=== PATIENT | male | born 1945 | race Caucasian/White ===

== ENCOUNTER → 2016-12-10 | Outpatient (CLI) | payer OTHER ==
[2016-02-27 13:19] VITALS: BP 114/57
--- NOTE | 2016-12-11 08:31 | RAD ---
History: Left hip pain Study: Left hip two views Findings: AP and frogleg views of the left hip including the pelvis on the AP view show no fracture o r displacement. Relative maintenance of the cartilage spaces at the left hip is seen. The SI joints appear intact. Impression: 1. No acute findings of the left hip or pelvis as visualized. Reported By:
== END ==
LOC: RAD 09:52
PROVIDERS: ATTEND Specialist
DX: M25.552 Pain in left hip (principal)
CPT/HCPCS: 73501

== ENCOUNTER 2023-07-19 07:36 | Inpatient (IN) ==
[2023-07-19 09:03] LABS: BASOPHILS % (AUTO) 0.3 % (0.2-1.0); EOSINOPHILS % (AUTO) 0.1 % (0.9-2.9); HEMATOCRIT 32.1 % (42.0-54.0); HEMOGLOBIN 10.3 g/dL (13.5-18.0); LYMPHOCYTES # (AUTO) 0.5 X10^3/uL (1.3-2.9); LYMPHOCYTES % (AUTO) 8.1 % (21.0-51.0); MEAN CORPUSCULAR HEMOGLOBIN 31.2 pg (27.0-34.0); MEAN CORPUSCULAR VOLUME 97.6 fL (80.0-100.0); MEAN PLATELET VOLUME 10.4 fL (7.4-11.0); MONOCYTES # (AUTO) 0.5 x10^3/uL (0.3-0.8); MONOCYTES % (AUTO) 7.9 % (0.0-13.0); NEUTROPHILS # (AUTO) 5.4 x10^3/uL (2.2-4.8); NEUTROPHILS % (AUTO) 83.6 % (42.0-75.0); PLATELET COUNT 180 X10^3/uL (150.0-450.0); RED BLOOD COUNT 3.29 X10^6/uL (4.7-6.0); RED CELL DISTRIBUTION WIDTH 15.1 % (11.6-16.5); WHITE BLOOD COUNT 6.4 X10^3/uL (3.6-10.0)
--- NOTE | 2023-07-19 09:12 | CT ---
EXAM:BRAIN W/O CONHISTORY:Altered mental statusTECHNIQUE:Axial noncontrast images with coronal and sagittal reformats. Dose reduction procedures were used with mA/kv adjusted for body size.COMPARISON:NoneFINDINGS:The ventricles, cortical sulci, and other CSF spaces are enlarged consistent with generalized atrophy likely age-related. There are no focal areas of abnormal attenuation to suggest recent or remote CVA, hemorrhage, mass lesion, or extra-axial fluid collection. Visualized sinuses are clear with the exception of mucosal inflammatory changes present within the right frontal sinus. Calvarium is intact.IMPRESSION:No acute intracranial abnormality identifiedGeneralized atrophy likely age-relatedRight frontal sinusitisTHIS IS AN ELECTRONICALLY VERIFIED FINAL REPORT07/19/2023 9:04 AM - Electronically signed by Jeremy Hansen MD
[2023-07-19 09:16] LABS: ALANINE AMINOTRANSFERASE 17 Units/L (12-78); ALBUMIN 1.5 g/dL (3.4-5.0); ALKALINE PHOSPHATASE 89 Units/L (46-116); ASPARTATE AMINO TRANSFERASE 31 Units/L (15-37); BLOOD UREA NITROGEN 34 mg/dL (7-18); CALCIUM 9.2 mg/dL (8.5-10.1); CARBON DIOXIDE 25.2 mmol/L (21-32); CHLORIDE 100 mmol/L (98-107); COR CA(FOR HYPOALB) 11.2 mg/dL (8.5-10.1); CREATINE KINASE 382 Units/L (39-308); POTASSIUM 4.1 mmol/L (3.5-5.1); SODIUM 138 mmol/L (136-145); TOTAL PROTEIN 7.5 g/dL (6.4-8.2); eGFR NON BLACK RACES 45 (>60)
[2023-07-19 09:19] LABS: COR NA(FOR HYPERGLY) 153 mmol/L (136-145); GLUCOSE 719 mg/dL (65-99)
[2023-07-19 09:26] LABS: SERUM ACETONE NEGATIVE (NEGATIVE)
[2023-07-19 09:32] LABS: BILIRUBIN,URINE NEGATIVE (NEGATIVE); BLOOD/HEMOGLOBIN,URINE 4+ (NEGATIVE); GLUCOSE, URINE 4+ (NEGATIVE); KETONES,URINE 2+ (NEGATIVE); LEUKOCYTE ESTERASE ,URINE NEGATIVE (NEGATIVE); NITRITES,URINE NEGATIVE (NEGATIVE); PROTEIN,URINE 1+ (NEGATIVE); UROBILINOGEN,URINE NORMAL (NORMAL)
--- NOTE | 2023-07-19 09:41 | RAD ---
EXAM:CHEST, 1 VIEWHISTORY:SOB;COMPARISON:Prior study or studies were utilized for comparison during interpretation with the most relevant dated 12/19/2020TECHNIQUE:CHEST, 1 VIEWFINDINGS:Chest:Lines and tubes: Cardiac leads overlie the chest.Mediastinum: Cardiomegaly.Pulmonary vessels: Low lung volumes contributes to increased conspicuity of pulmonary vascular markings.Lung russ: Patchy opacities are seenPleura: No effusion. No pneumothorax.Bones and soft tissues: No acute osseous or soft tissue abnormality.IMPRESSION:1. Patchy bilateral airspace opacities may indicate pneumonia in the proper clinical settingTHIS IS AN ELECTRONICALLY VERIFIED FINAL REPORT07/19/2023 9:38 AM - Electronically signed by Sterling Valdes MD
[2023-07-19 09:53] LABS: APPEARANCE,URINE SLIGHTLY HAZY (CLEAR); COLOR,URINE STRAW (YELLOW); SQUAMOUS EPITHELIAL CELL,UR RARE /HPF (NEGATIVE)
[2023-07-19 09:54] LABS: BACTERIA,URINE TRACE /HPF (NEGATIVE)
[2023-07-19] MEDS ORDERED: NS 1,000 ML IV 1,000 ML ONE (10:04)
[2023-07-19] MEDS ORDERED: ZITHROMAX INJ 500 MG VIAL IV ONE (10:04)
[2023-07-19] MEDS ORDERED: NS 250 ML IV 250 ML IV ONE (10:04)
[2023-07-19] MEDS: NS 1,000 ML IV 1,000 ML IV ONE (10:05)
[2023-07-19] MEDS: ZITHROMAX INJ 500 MG VIAL 500 MG in NS 250 ML IV 250 ML IV ONE (10:06)
--- NOTE | 2023-07-19 10:31 | DR.HYPOGLY ---
HPI Time Seen Time Seen by Provider: 07/19/23 10:28 PCP Primary Care Physician: Unknown Complaint Chief Complaint:: EMS was called by family due to altered mental status and high blood sugar. On arrival, he is unable to answer any questions. His glucose on arrival read as "High". He is only moaning and not answering any basic questions. COVID-19 Coronavirus risk:travel/contact w/high risk person: No Has patient experienced Coronavirus symptoms: No Source History Provided: Patient Mode of Arrival Mode of Arrival: Stretcher Timing Onset of Chief Complaint: 07/19/23 PMH PMH Past Medical History: Yes Past Medical History: Arthritis, Diabetes, Dyslipidemia, GERD and Hypertension Past Surgical History: Yes Surgical History: Other Family History History of Family Medical Conditions: Yes Family Medical History: Coronary Artery Disease and Hypertension Social History Do you use any recreational Drugs:: No Lives With: Family Lives Where: Home Travel Risk Coronavirus risk:travel/contact w/high risk person: No Has patient experienced Coronavirus symptoms: No Infectious screening In the last 2 months have you had wt loss of >10#?: NO Have you had fever, night sweats or hemotysis?: No Have you traveled outside the country in the last 6 months?: No Isolation: Standard PE Vital Signs Vitals: Vital Signs Temperature 96 F Pulse Rate 95 Pulse Rate 91 Pulse Rate 129 Pulse Rate 102 Pulse Rate 110 Pulse Rate 110 Pulse Rate 97 Pulse Rate 91 Pulse Rate 104 Pulse Rate 90 Pulse Rate 91 Pulse Rate 89 Pulse Rate 93 Pulse Rate 83 Pulse Rate 93 Pulse Rate 81 Pulse Rate 90 Pulse Rate 91 Pulse Rate 94 Pulse Rate 75 Pulse Rate 92 Respiratory Rate 25 Respiratory Rate 22 Respiratory Rate 34 Respiratory Rate 22 Respiratory Rate 13 Respiratory Rate 26 Respiratory Rate 34 Respiratory Rate 37 Respiratory Rate 32 Respiratory Rate 18 Respiratory Rate 17 Respiratory Rate 20 Respiratory Rate 30 Respiratory Rate 24 Respiratory Rate 17 Respiratory Rate 30 Respiratory Rate 10 Respiratory Rate 17 Respiratory Rate 21 Blood Pressure 137/77 Blood Pressure 147/90 Blood Pressure 154/80 Blood Pressure 157/82 Blood Pressure 153/67 Blood Pressure 132/60 O2 Sat by Pulse Oximetry 96 O2 Sat by Pulse Oximetry 95 O2 Sat by Pulse Oximetry 96 O2 Sat by Pulse Oximetry 85 O2 Sat by Pulse Oximetry 80 O2 Sat by Pulse Oximetry 86 O2 Sat by Pulse Oximetry 95 O2 Sat by Pulse Oximetry 96 O2 Sat by Pulse Oximetry 96 O2 Sat by Pulse Oximetry 85 O2 Sat by Pulse Oximetry 95 O2 Sat by Pulse Oximetry 94 O2 Sat by Pulse Oximetry 95 O2 Sat by Pulse Oximetry 96 ROR Labs Reviewed 07/19/23 08:40 07/19/23 08:40 Laboratory: WBC 6.4 X10^3/uL (3.6-10.0) 07/19/23 08:40 RBC 3.29 X10^6/uL (4.7-6.0) L 07/19/23 08:40 Hgb 10.3 g/dL (13.5-18.0) L 07/19/23 08:40 Hct 32.1 % (42.0-54.0) L 07/19/23 08:40 MCV 97.6 fL (80.0-100.0) 07/19/23 08:40 MCH 31.2 pg (27.0-34.0) 07/19/23 08:40 MCHC 32.0 g/dL (33.0-35.0) L 07/19/23 08:40 RDW 15.1 % (11.6-16.5) 07/19/23 08:40 Plt Count 180 X10^3/uL (150.0-450.0) 07/19/23 08:40 MPV 10.4 fL (7.4-11.0) 07/19/23 08:40 Neut % (Auto) 83.6 % (42.0-75.0) H 07/19/23 08:40 Lymph % (Auto) 8.1 % (21.0-51.0) L 07/19/23 08:40 [place] % (Auto) 7.9 % (0.0-13.0) 07/19/23 08:40 Eos % (Auto) 0.1 % (0.9-2.9) L 07/19/23 08:40 Baso % (Auto) 0.3 % (0.2-1.0) 07/19/23 08:40 Neut # (Auto) 5.4 x10^3/uL (2.2-4.8) H 07/19/23 08:40 Lymph # (Auto) 0.5 X10^3/uL (1.3-2.9) L 07/19/23 08:40 [place] # (Auto) 0.5 x10^3/uL (0.3-0.8) 07/19/23 08:40 Eos # (Auto) 0.0 x10^3/uL (0.0-0.2) 07/19/23 08:40 Baso # (Auto) 0.0 X10^3/uL (0.0-0.1) 07/19/23 08:40 Absolute Nucleated RBC 0.0 /100WBC 07/19/23 08:40 Sodium 138 mmol/L (136-145) 07/19/23 08:40 Corrected Sodium 153 mmol/L (136-145) H 07/19/23 08:40 Potassium 4.1 mmol/L (3.5-5.1) 07/19/23 08:40 Chloride 100 mmol/L (98-107) 07/19/23 08:40 Carbon Dioxide 25.2 mmol/L (21-32) 07/19/23 08:40 BUN 34 mg/dL (7-18) H 07/19/23 08:40 Creatinine 1.60 mg/dL (0.70-1.30) H 07/19/23 08:40 Est GFR (MDRD) Af Amer 54 (>60) L 07/19/23 08:40 Est GFR (MDRD) Non-Af 45 (>60) L 07/19/23 08:40 Glucose 719 mg/dL (65-99) H* 07/19/23 08:40 POC Glucose (mg/dL) 526 mg/dL (65-99) H* 07/19/23 11:50 Lactic Acid 1.3 mmol/L (0.4-2.0) 07/19/23 08:40 Calcium 9.2 mg/dL (8.5-10.1) 07/19/23 08:40 Corrected Calcium 11.2 mg/dL (8.5-10.1) H 07/19/23 08:40 Total Bilirubin 0.70 mg/dL (0.2-1.0) 07/19/23 08:40 AST 31 Units/L (15-37) 07/19/23 08:40 ALT 17 Units/L (12-78) 07/19/23 08:40 Alkaline Phosphatase 89 Units/L (46-116) 07/19/23 08:40 Creatine Kinase 382 Units/L (39-308) H 07/19/23 08:40 Troponin I High Sens 19.3 ng/L (4.0-60.0) 07/19/23 08:40 B-Natriuretic Peptide 194 pg/mL (0-79) H 07/19/23 08:40 Total Protein 7.5 g/dL (6.4-8.2) 07/19/23 08:40 Albumin 1.5 g/dL (3.4-5.0) L 07/19/23 08:40 Globulin 6.0 g/dL (2.5-4.5) H 07/19/23 08:40 Albumin/Globulin Ratio 0.3 Ratio (1.1-2.1) L 07/19/23 08:40 Specimen Type Catherized urine 07/19/23 09:11 Urine Color Straw (YELLOW) 07/19/23 09:11 Urine Appearance Slightly hazy (CLEAR) 07/19/23 09:11 Urine pH 5.0 (5.0 - 8.0) 07/19/23 09:11 Ur Specific [place] 1.010 (1.000-1.030) 07/19/23 09:11 Urine Protein 1+ (NEGATIVE) 07/19/23 09:11 Urine Glucose (UA) 4+ (NEGATIVE) 07/19/23 09:11 Urine Ketones 2+ (NEGATIVE) 07/19/23 09:11 Urine Blood 4+ (NEGATIVE) 07/19/23 09:11 Urine Nitrite Negative (NEGATIVE) 07/19/23 09:11 Urine Bilirubin Negative (NEGATIVE) 07/19/23 09:11 Urine Urobilinogen Normal (NORMAL) 07/19/23 09:11 Ur Leukocyte Esterase Negative (NEGATIVE) 07/19/23 09:11 Urine RBC 3-5 /HPF (0-3) A 07/19/23 09:11 Urine WBC 0-2 /HPF (0-5) 07/19/23 09:11 Ur Squamous Epith Cells Rare /HPF (NEGATIVE) 07/19/23 09:11 Amorphous Sediment Trace /HPF (NEGATIVE) 07/19/23 09:11 Urine Bacteria Trace /HPF (NEGATIVE) 07/19/23 09:11 Ur Culture Indicated? No/not indicated 07/19/23 09:11 Acetone, Semi-Quant Negative (NEGATIVE) 07/19/23 08:40 Opioid Opioid Risk Tool Age (Jayden box if 16-45): No History of Preadolescent Sexual Abuse: No Total: 0 Total Score Risk Category: Low Risk Copyright: Luis SCOTT predicting aberrant behaviors Discharge Plan Diagnosis Discharge Problem: Pneumonia, Hyperglycemia Discharge Plan Patient Disposition: 09 ADMITTED INPATIENT Condition: Stable Orders to Discharge Patient Discharge Orders: Transfer (Routine); Ordered 07/19/23 Ordered By: MONICA DALTON
[2023-07-19] MEDS ORDERED: NovoLIN R (or HumuLIN R) ONE (10:47)
[2023-07-19] MEDS: NovoLIN R (or HumuLIN R) IV ONE ×2 (10:48→11:59)
[2023-07-19] MEDS: NS 1,000 ML IV 1,000 ML IV SCH (12:24)
[2023-07-19] MEDS: NYSTATIN POWDER TOP SCH (14:22)
[2023-07-19] MEDS: NovoLIN R (or HumuLIN R) IV PRN (14:35)
[2023-07-19 17:08] VITALS: BMI 32.4
[2023-07-19] MEDS: DUONEB 0.5 MG/3 MG (3 mL) NEB SCH (17:22)
[2023-07-19] MEDS: SNACK - Diabetic Appropriate PO SCH ×2 (20:05→20:50)
[2023-07-19] MEDS: PULMICORT NEB TX 0.5 MG NEB SCH (20:30)
[2023-07-20 05:09] LABS: BASOPHILS % (AUTO) 0.1 % (0.2-1.0); EOSINOPHILS % (AUTO) 0.2 % (0.9-2.9); HEMATOCRIT 30.3 % (42.0-54.0); HEMOGLOBIN 9.9 g/dL (13.5-18.0); LYMPHOCYTES # (AUTO) 0.6 X10^3/uL (1.3-2.9); LYMPHOCYTES % (AUTO) 8.9 % (21.0-51.0); MEAN CORPUSCULAR HEMOGLOBIN 30.8 pg (27.0-34.0); MEAN CORPUSCULAR HGB CONC 32.7 g/dL (33.0-35.0); MEAN CORPUSCULAR VOLUME 94.1 fL (80.0-100.0); MEAN PLATELET VOLUME 10.6 fL (7.4-11.0); MONOCYTES # (AUTO) 0.6 x10^3/uL (0.3-0.8); MONOCYTES % (AUTO) 9.1 % (0.0-13.0); NEUTROPHILS # (AUTO) 5.1 x10^3/uL (2.2-4.8); NEUTROPHILS % (AUTO) 81.7 % (42.0-75.0); PLATELET COUNT 195 X10^3/uL (150.0-450.0); RED BLOOD COUNT 3.22 X10^6/uL (4.7-6.0); RED CELL DISTRIBUTION WIDTH 14.6 % (11.6-16.5); WHITE BLOOD COUNT 6.2 X10^3/uL (3.6-10.0)
[2023-07-20 05:21] LABS: ALANINE AMINOTRANSFERASE 16 Units/L (12-78); ALBUMIN 1.3 g/dL (3.4-5.0); ALKALINE PHOSPHATASE 75 Units/L (46-116); ASPARTATE AMINO TRANSFERASE 21 Units/L (15-37); BLOOD UREA NITROGEN 25 mg/dL (7-18); CALCIUM 8.7 mg/dL (8.5-10.1); CARBON DIOXIDE 30.6 mmol/L (21-32); CHLORIDE 110 mmol/L (98-107); COR CA(FOR HYPOALB) 10.9 mg/dL (8.5-10.1); COR NA(FOR HYPERGLY) 154 mmol/L (136-145); CREATININE 1.14 mg/dL (0.70-1.30); GLUCOSE 303 mg/dL (65-99); MAGNESIUM 1.9 mg/dL (2.0-2.9); POTASSIUM 3.7 mmol/L (3.5-5.1); SODIUM 149 mmol/L (136-145); TOTAL PROTEIN 6.7 g/dL (6.4-8.2); eGFR NON BLACK RACES > 60 (>60)
[2023-07-20] MEDS ORDERED: CONSULT PHARMACY - POTASSIUM & MAGNESIUM XX SCH (06:00)
[2023-07-20] MEDS: MAG-OX TAB PO SCH (09:00)
[2023-07-20] MEDS: ELIQUIS PO SCH (09:00)
[2023-07-20] MEDS: K-DUR TAB 20 MEQ PO SCH (09:00)
[2023-07-20] MEDS: FLOMAX PO SCH (09:01)
[2023-07-20] MEDS: DIOVAN TAB 160 MG PO SCH (09:03)
[2023-07-20] MEDS: ZITHROMAX INJ 500 MG VIAL 500 MG in NS 250 ML IV 250 ML IV SCH (09:03)
[2023-07-20 09:06] LABS: FREE T4 (FREE THYROXINE) 1.17 ng/dL (0.76-1.46); TSH (3RD GENERATION) 0.741 uIU/mL (0.358-3.74)
[2023-07-20 09:09] LABS: TOTAL PSA 1.01 ng/mL (0.13-4.0)
[2023-07-20] MEDS: SILVADENE TOP SCH (09:27)
--- NOTE | 2023-07-20 12:08 | RAD ---
EXAM:CHEST, 1 VIEWHISTORY:PNEUMONIA; DM, HTN, TOE REMOVEDCOMPARISON:Prior study or studies were utilized for comparison during interpretation with the most relevant dated 07/19/2023TECHNIQUE:CHEST, 1 VIEWFINDINGS:Chest:Lines and tubes: Cardiac leads overlie the chest.Mediastinum: Cardiomegaly.Pulmonary vessels: Low lung volumes contributes to increased conspicuity of pulmonary vascular markings.Lung russ: No suspicious airspace opacity.Pleura: No effusion. No pneumothorax.Bones and soft tissues: No acute osseous or soft tissue abnormality.IMPRESSION:1. No acute cardiopulmonary abnormalityTHIS IS AN ELECTRONICALLY VERIFIED FINAL REPORT07/20/2023 12:04 PM - Electronically signed by Sterling Valdes MD
--- NOTE | 2023-07-20 12:59 | EKG ---
Test Reason : ELEVATED HEART RATE Blood Pressure : */* mmHG Vent. Rate : 94 BPM Atrial Rate : 94 BPM P-R Int : 150 ms QRS Dur : 98 ms QT Int : 344 ms P-R-T Axes : * 192 172 degrees QTc Int : 430 ms Normal sinus rhythm Right superior axis deviation Abnormal ECG No previous ECGs available Confirmed by Lucius Argueta MD ([id number]) on 07/20/2023 3:02:35 PM Referred By: Confirmed By: Lucius Argueta MD
[2023-07-20] MEDS: LOPRESSOR TAB 25 MG PO SCH (14:02)
--- NOTE | 2023-07-20 18:03 | DR.H&P ---
H&P History & Physical for Day of: H&P Date: 07/19/23 Chief Complaint Chief Complaint: AMS Allergies Allergies Allergy/AdvReac Type Severity Reaction Status Date / Time ciprofloxacin [Cipro] Allergy Unknown Verified 07/19/23 07:43 codeine Allergy Unknown Verified 07/19/23 07:43 morphine Allergy Unknown Verified 07/19/23 07:43 Penicillins Allergy Unknown Verified 07/19/23 07:43 Sulfa (Sulfonamide Allergy Unknown Verified 07/19/23 07:43 Antibiotics) [SULFA] ALL NARCOTICS AdvReac Uncoded 07/19/23 07:43 History of Present Illness History of Present Illness: EMS was called by family due to altered mental status and high blood sugar. Pt has recently had a fall with reports of bruising on his lower back. Pt has PMH of diabetes, HTN, AFIB, OA, PVD, gerd and neuropathy. Pt had pneumonia on CXR on ER. Pt admitted to ICU for treatment and evaluation of acute illness. Past Medical History Past Medical History: Arthritis, Diabetes, Dyslipidemia, GERD and Hypertension Additional Medical History: VENOUS INSUFFICIENCY, PAD Past Surgical History Surgical History: Ortho Surgery Additional Surgical History: TOE AMPUTATION- RIGHT GREAT TOE Family History Family Medical History: Coronary Artery Disease and Hypertension Social History Does patient currently use any type of tobacco product: No Does any household member use tobacco: No Alcohol Use: None Drug Use: None Medications Home Medications: Home Medications Medication Instructions Recorded Confirmed Type valsartan 320 mg tablet 320 mg PO DAILY 02/24/16 07/19/23 History apixaban 5 mg tablet (Eliquis) 5 mg PO BID 12/19/20 07/19/23 History insulin degludec 100 unit/mL (3 50 unit subcut DAILY 12/19/20 07/19/23 History mL) subcutaneous pen (Tresiba FlexTouch U-100 insulin) tamsulosin 0.4 mg capsule 0.4 mg PO DAILY 12/19/20 07/19/23 History Labs 07/20/23 04:53 07/20/23 04:53 Labs: 07/19/23 08:40 Blood Blood Culture Gram Stain - Final 07/19/23 08:40 Blood Blood Culture - Preliminary 07/19/23 08:50 Blood Blood Culture Gram Stain - Final Laboratory WBC 6.2 X10^3/uL (3.6-10.0) 07/20/23 04:53 RBC 3.22 X10^6/uL (4.7-6.0) L 07/20/23 04:53 Hgb 9.9 g/dL (13.5-18.0) L 07/20/23 04:53 Hct 30.3 % (42.0-54.0) L 07/20/23 04:53 MCV 94.1 fL (80.0-100.0) 07/20/23 04:53 MCH 30.8 pg (27.0-34.0) 07/20/23 04:53 MCHC 32.7 g/dL (33.0-35.0) L 07/20/23 04:53 RDW 14.6 % (11.6-16.5) 07/20/23 04:53 Plt Count 195 X10^3/uL (150.0-450.0) 07/20/23 04:53 MPV 10.6 fL (7.4-11.0) 07/20/23 04:53 Neut % (Auto) 81.7 % (42.0-75.0) H 07/20/23 04:53 Lymph % (Auto) 8.9 % (21.0-51.0) L 07/20/23 04:53 [place] % (Auto) 9.1 % (0.0-13.0) 07/20/23 04:53 Eos % (Auto) 0.2 % (0.9-2.9) L 07/20/23 04:53 Baso % (Auto) 0.1 % (0.2-1.0) L 07/20/23 04:53 Neut # (Auto) 5.1 x10^3/uL (2.2-4.8) H 07/20/23 04:53 Lymph # (Auto) 0.6 X10^3/uL (1.3-2.9) L 07/20/23 04:53 [place] # (Auto) 0.6 x10^3/uL (0.3-0.8) 07/20/23 04:53 Eos # (Auto) 0.0 x10^3/uL (0.0-0.2) 07/20/23 04:53 Baso # (Auto) 0.0 X10^3/uL (0.0-0.1) 07/20/23 04:53 Absolute Nucleated RBC 0.1 /100WBC 07/20/23 04:53 Sodium 149 mmol/L (136-145) H 07/20/23 04:53 Corrected Sodium 154 mmol/L (136-145) H 07/20/23 04:53 Potassium 3.7 mmol/L (3.5-5.1) 07/20/23 04:53 Chloride 110 mmol/L (98-107) H 07/20/23 04:53 Carbon Dioxide 30.6 mmol/L (21-32) 07/20/23 04:53 BUN 25 mg/dL (7-18) H 07/20/23 04:53 Creatinine 1.14 mg/dL (0.70-1.30) 07/20/23 04:53 Est GFR (MDRD) Af Amer > 60 (>60) 07/20/23 04:53 Est GFR (MDRD) Non-Af > 60 (>60) 07/20/23 04:53 Glucose 303 mg/dL (65-99) H 07/20/23 04:53 POC Glucose (mg/dL) 335 mg/dL (65-99) H 07/20/23 16:11 Hemoglobin A1c 12.2 % 07/20/23 04:53 Lactic Acid 1.3 mmol/L (0.4-2.0) 07/20/23 09:40 Calcium 8.7 mg/dL (8.5-10.1) 07/20/23 04:53 Corrected Calcium 10.9 mg/dL (8.5-10.1) H 07/20/23 04:53 Magnesium 1.9 mg/dL (2.0-2.9) L 07/20/23 04:53 Total Bilirubin 0.40 mg/dL (0.2-1.0) 07/20/23 04:53 AST 21 Units/L (15-37) 07/20/23 04:53 ALT 16 Units/L (12-78) 07/20/23 04:53 Alkaline Phosphatase 75 Units/L (46-116) 07/20/23 04:53 Creatine Kinase 382 Units/L (39-308) H 07/19/23 08:40 Troponin I High Sens 19.3 ng/L (4.0-60.0) 07/19/23 08:40 B-Natriuretic Peptide 194 pg/mL (0-79) H 07/19/23 08:40 Total Protein 6.7 g/dL (6.4-8.2) 07/20/23 04:53 Albumin 1.3 g/dL (3.4-5.0) L 07/20/23 04:53 Globulin 5.4 g/dL (2.5-4.5) H 07/20/23 04:53 Albumin/Globulin Ratio 0.2 Ratio (1.1-2.1) L 07/20/23 04:53 Total PSA 1.01 ng/mL (0.13-4.0) 07/20/23 04:53 Free T4 1.17 ng/dL (0.76-1.46) 07/20/23 04:53 TSH 3rd Generation 0.741 uIU/mL (0.358-3.74) 07/20/23 04:53 Specimen Type Catherized urine 07/19/23 09:11 Urine Color Straw (YELLOW) 07/19/23 09:11 Urine Appearance Slightly hazy (CLEAR) 07/19/23 09:11 Urine pH 5.0 (5.0 - 8.0) 07/19/23 09:11 Ur Specific [place] 1.010 (1.000-1.030) 07/19/23 09:11 Urine Protein 1+ (NEGATIVE) 07/19/23 09:11 Urine Glucose (UA) 4+ (NEGATIVE) 07/19/23 09:11 Urine Ketones 2+ (NEGATIVE) 07/19/23 09:11 Urine Blood 4+ (NEGATIVE) 07/19/23 09:11 Urine Nitrite Negative (NEGATIVE) 07/19/23 09:11 Urine Bilirubin Negative (NEGATIVE) 07/19/23 09:11 Urine Urobilinogen Normal (NORMAL) 07/19/23 09:11 Ur Leukocyte Esterase Negative (NEGATIVE) 07/19/23 09:11 Urine RBC 3-5 /HPF (0-3) A 07/19/23 09:11 Urine WBC 0-2 /HPF (0-5) 07/19/23 09:11 Ur Squamous Epith Cells Rare /HPF (NEGATIVE) 07/19/23 09:11 Amorphous Sediment Trace /HPF (NEGATIVE) 07/19/23 09:11 Urine Bacteria Trace /HPF (NEGATIVE) 07/19/23 09:11 Ur Culture Indicated? No/not indicated 07/19/23 09:11 Acetone, Semi-Quant Small (NEGATIVE) H 07/19/23 16:01 Resp Viral Panel (PCR) See scanned report 07/19/23 13:19 Review of Systems Constitutional: No Symptoms Reported Eyes: Vision Change ENT: Nose Discharge Respiratory: Shortness of Breath Cardiovascular: Edema Gastrointestinal: No Symptoms Reported Genitourinary: Frequency Musculoskeletal: Back Pain and Leg Pain Skin: Rash and Lesions Neurological: Weakness and Numbness Physical Exam Vital Signs: Vital Signs Temperature 97.5 F Temperature 98.0 F Pulse Rate [Right Brachial] 95 Pulse Rate [Right Brachial] 84 Pulse Rate [Right Brachial] 100 Pulse Rate [Right Brachial] 100 Pulse Rate [Right Brachial] 95 Pulse Rate [Right Brachial] 95 Pulse Rate [Right Brachial] 103 Pulse Rate [Right Brachial] 96 Respiratory Rate 9 Respiratory Rate 9 Respiratory Rate 9 Respiratory Rate 11 Respiratory Rate 18 Respiratory Rate 13 Respiratory Rate 18 Respiratory Rate 14 Blood Pressure [Left Arm] 139/62 Blood Pressure [Left Arm] 135/92 Blood Pressure [Left Arm] 125/60 Blood Pressure [Left Arm] 131/63 Blood Pressure [Left Arm] 155/66 Blood Pressure [Left Arm] 182/82 Blood Pressure [Left Arm] 158/70 Blood Pressure [Left Arm] 161/75 O2 Sat by Pulse Oximetry 93 O2 Sat by Pulse Oximetry 95 O2 Sat by Pulse Oximetry 93 O2 Sat by Pulse Oximetry 91 O2 Sat by Pulse Oximetry 94 O2 Sat by Pulse Oximetry 93 O2 Sat by Pulse Oximetry 93 O2 Sat by Pulse Oximetry 91 Oriented: Normal Eyes: Normal Ear: Normal Nose: Normal Throat: Normal and Dry Respiratory: RLL Diminished and LLL Diminished Cardiovascular: Irregular and Edema Tenderness: Normal Skin: Decreased Turgur, Red and Wound Musculoskeletal: Right, Left, Leg, Swelling and Motor Deficit Psychiatric: Anxiety Mood Description: Anxious Affect: Anxious Assessment/Plan (1) Pneumonia: Narrative Support Text: ADMIT, ICU, SUPPLEMENTAL O2, IV HYDRATION IV ATBX, BLOOD AND URINE CULTURE STRICT I&S, CARDIAC MONITORING BS CONTROL, WOUND CARE Status: Acute (2) Ulcer of ankle due to type 2 diabetes mellitus: Status: Acute (3) Type 2 diabetes mellitus treated with insulin: Status: Acute (4) GERD (gastroesophageal reflux disease): Status: Chronic (5) Hypertension: Status: Chronic (6) Cellulitis of leg without foot, left: Status: Acute (7) Open wound, lower leg: Status: Acute (8) Arthritis: Status: Chronic
[2023-07-20] MEDS: VISTARIL PO PRN (23:40)
[2023-07-21 04:43] LABS: BASOPHILS % (AUTO) 0.2 % (0.2-1.0); HEMATOCRIT 29.3 % (42.0-54.0); HEMOGLOBIN 9.7 g/dL (13.5-18.0); LYMPHOCYTES # (AUTO) 0.5 X10^3/uL (1.3-2.9); LYMPHOCYTES % (AUTO) 8.1 % (21.0-51.0); MEAN CORPUSCULAR HGB CONC 33.2 g/dL (33.0-35.0); MEAN CORPUSCULAR VOLUME 93.3 fL (80.0-100.0); MEAN PLATELET VOLUME 10.1 fL (7.4-11.0); MONOCYTES # (AUTO) 0.6 x10^3/uL (0.3-0.8); MONOCYTES % (AUTO) 10.6 % (0.0-13.0); NEUTROPHILS # (AUTO) 4.7 x10^3/uL (2.2-4.8); NEUTROPHILS % (AUTO) 81.1 % (42.0-75.0); PLATELET COUNT 173 X10^3/uL (150.0-450.0); RED BLOOD COUNT 3.14 X10^6/uL (4.7-6.0); RED CELL DISTRIBUTION WIDTH 14.7 % (11.6-16.5); WHITE BLOOD COUNT 5.8 X10^3/uL (3.6-10.0)
[2023-07-21 04:54] LABS: ALANINE AMINOTRANSFERASE 14 Units/L (12-78); ALBUMIN 1.2 g/dL (3.4-5.0); ALKALINE PHOSPHATASE 74 Units/L (46-116); ASPARTATE AMINO TRANSFERASE 21 Units/L (15-37); BLOOD UREA NITROGEN 23 mg/dL (7-18); CARBON DIOXIDE 32.2 mmol/L (21-32); CHLORIDE 108 mmol/L (98-107); COR CA(FOR HYPOALB) 10.2 mg/dL (8.5-10.1); COR NA(FOR HYPERGLY) 148 mmol/L (136-145); CREATININE 1.23 mg/dL (0.70-1.30); GLUCOSE 291 mg/dL (65-99); MAGNESIUM 1.7 mg/dL (2.0-2.9); POTASSIUM 4.1 mmol/L (3.5-5.1); SODIUM 143 mmol/L (136-145); TOTAL PROTEIN 6.7 g/dL (6.4-8.2); eGFR NON BLACK RACES > 60 (>60)
[2023-07-21] MEDS ORDERED: CONSULT PHARMACY - POTASSIUM & MAGNESIUM XX SCH (06:00)
[2023-07-21] MEDS: ROCEPHIN VIAL 1 GRAM 1 G in NS 100 ML IV 100 ML IV SCH (09:00)
[2023-07-21] MEDS: MAG-OX TAB PO SCH (09:01)
[2023-07-21 17:00] LABS: ABG ALLEN TEST POS; ABG BASE EXCESS 6.4 mmol/L (-2.0-2.0); ABG HCO3 29.2 mmol/L (22-26)
[2023-07-21] MEDS: TYLENOL 325 MG TAB PO PRN (20:29)
[2023-07-22 05:34] LABS: BASOPHILS % (AUTO) 0.4 % (0.2-1.0); HEMATOCRIT 26.8 % (42.0-54.0); HEMOGLOBIN 8.7 g/dL (13.5-18.0); LYMPHOCYTES # (AUTO) 0.4 X10^3/uL (1.3-2.9); LYMPHOCYTES % (AUTO) 7.4 % (21.0-51.0); MEAN CORPUSCULAR HEMOGLOBIN 30.8 pg (27.0-34.0); MEAN CORPUSCULAR HGB CONC 32.5 g/dL (33.0-35.0); MEAN CORPUSCULAR VOLUME 94.7 fL (80.0-100.0); MEAN PLATELET VOLUME 10.5 fL (7.4-11.0); MONOCYTES # (AUTO) 0.7 x10^3/uL (0.3-0.8); MONOCYTES % (AUTO) 14.5 % (0.0-13.0); NEUTROPHILS # (AUTO) 3.9 x10^3/uL (2.2-4.8); NEUTROPHILS % (AUTO) 77.7 % (42.0-75.0); PLATELET COUNT 151 X10^3/uL (150.0-450.0); RED BLOOD COUNT 2.83 X10^6/uL (4.7-6.0); RED CELL DISTRIBUTION WIDTH 15.3 % (11.6-16.5)
[2023-07-22 05:47] LABS: ALANINE AMINOTRANSFERASE 10 Units/L (12-78); ALBUMIN 0.9 g/dL (3.4-5.0); ALKALINE PHOSPHATASE 62 Units/L (46-116); ASPARTATE AMINO TRANSFERASE 21 Units/L (15-37); BLOOD UREA NITROGEN 18 mg/dL (7-18); CALCIUM 7.7 mg/dL (8.5-10.1); CARBON DIOXIDE 29.7 mmol/L (21-32); CHLORIDE 108 mmol/L (98-107); COR CA(FOR HYPOALB) 10.2 mg/dL (8.5-10.1); COR NA(FOR HYPERGLY) 148 mmol/L (136-145); CREATININE 1.12 mg/dL (0.70-1.30); GLUCOSE 318 mg/dL (65-99); MAGNESIUM 1.6 mg/dL (2.0-2.9); POTASSIUM 4.2 mmol/L (3.5-5.1); SODIUM 143 mmol/L (136-145); eGFR NON BLACK RACES > 60 (>60)
[2023-07-22] MEDS ORDERED: CONSULT PHARMACY - POTASSIUM & MAGNESIUM XX SCH (07:00)
[2023-07-22] MEDS: MAG-OX TAB PO SCH (08:26)
[2023-07-22] MEDS: VANCOMYCIN IV *PREMIX 1 G/200 ML BAG 1 G/200 ML PIGGYBACK IV SCH (08:44)
[2023-07-22] MEDS ORDERED: PHARMACY CONSULT - VANCOMYCIN XX SCH (09:00)
[2023-07-23] MEDS: PHARMACY COMMENT IV NR (05:34)
[2023-07-23 06:14] LABS: ALANINE AMINOTRANSFERASE 9 Units/L (12-78); ALBUMIN 0.8 g/dL (3.4-5.0); ALKALINE PHOSPHATASE 63 Units/L (46-116); ASPARTATE AMINO TRANSFERASE 24 Units/L (15-37); BLOOD UREA NITROGEN 18 mg/dL (7-18); CALCIUM 7.7 mg/dL (8.5-10.1); CHLORIDE 104 mmol/L (98-107); COR CA(FOR HYPOALB) 10.3 mg/dL (8.5-10.1); COR NA(FOR HYPERGLY) 144 mmol/L (136-145); CREATININE 0.99 mg/dL (0.70-1.30); GLUCOSE 371 mg/dL (65-99); POTASSIUM 4.2 mmol/L (3.5-5.1); SODIUM 137 mmol/L (136-145); TOTAL PROTEIN 5.9 g/dL (6.4-8.2); eGFR NON BLACK RACES > 60 (>60)
[2023-07-23 06:15] LABS: HEMOGLOBIN 9.4 g/dL (13.5-18.0); MEAN CORPUSCULAR HGB CONC 32.8 g/dL (33.0-35.0); MEAN PLATELET VOLUME 10.2 fL (7.4-11.0)
[2023-07-23 06:23] LABS: BASOPHILS % (AUTO) 0.3 % (0.2-1.0); EOSINOPHILS % (AUTO) 0.6 % (0.9-2.9); HEMATOCRIT 28.7 % (42.0-54.0); LYMPHOCYTES # (AUTO) 0.7 X10^3/uL (1.3-2.9); LYMPHOCYTES % (AUTO) 13.7 % (21.0-51.0); MEAN CORPUSCULAR VOLUME 94.5 fL (80.0-100.0); MONOCYTES # (AUTO) 0.8 x10^3/uL (0.3-0.8); MONOCYTES % (AUTO) 15.4 % (0.0-13.0); NEUTROPHILS # (AUTO) 3.6 x10^3/uL (2.2-4.8); PLATELET COUNT 135 X10^3/uL (150.0-450.0); RED BLOOD COUNT 3.04 X10^6/uL (4.7-6.0); RED CELL DISTRIBUTION WIDTH 15.3 % (11.6-16.5); WHITE BLOOD COUNT 5.2 X10^3/uL (3.6-10.0)
[2023-07-23] MEDS: MILK OF MAGNESIA PO SCH (09:38)
[2023-07-23] MEDS: TRESIBA U-100 INSULIN SC SCH (09:39)
--- NOTE | 2023-07-23 10:39 | RAD ---
EXAM:CHEST, 1 VIEWHISTORY:pneumonia; DM, HTN, TOE REMOVEDCOMPARISON:07/20/2023FINDINGS:The cardiomediastinal silhouette is stable.Possible scattered bilateral airspace opacities. No pneumothorax or effusion.No acute osseous abnormality.IMPRESSION:Scattered bilateral airspace opacities which may be due to chronic changes or pneumonia.THIS IS AN ELECTRONICALLY VERIFIED FINAL REPORT07/23/2023 10:36 AM - Electronically signed by Jeremy Hansen MD
--- NOTE | 2023-07-23 11:55 | PCM.PROG ---
Progress Note Progress Note for Day of Date of Exam: 07/20/23 Subjective Subjective: Patient is 78 YEAR OLD WHITE MALE PATIENT WHO WAS AN ER ADMISSION ON 07/19/23 AFTER PRESENTING FOR AMS AND HYPERGLYCEMIA. PT HAD ALSO REPORTEDLY HAD A RECENT FALL PRIOR TO ADMISSION WITH BURSING TO LOWER BACK. ER WORKUP REVEALED GLUCOSE GREATER THAN 700 AND CHEST XRAY SHOWED PNEUMONIA. PT WAS ADMITTED FOR FURTHER WORKUP AND TREATMENT. UPON ADMISSION, PT WAS STARTED ON IV ABX, IV HYDRATION, BS CONTROL, AND BLOOD CULTURES OBTAINED. BLOOD CULTURES DID GROW OUT COAGULASE POSITIVE STAPH. MORNING LABS: WBC 5.8, HGB 9.7, BUN 23/CREATININE 1.23, GLUCOSE 291. Past Medical Family Social History Allergies: Allergies ciprofloxacin [Cipro] Allergy (Unknown, Verified 07/19/23 07:43) Reason: Drug allergy codeine Allergy (Unknown, Verified 07/19/23 07:43) morphine Allergy (Unknown, Verified 07/19/23 07:43) Penicillins Allergy (Unknown, Verified 07/19/23 07:43) Sulfa (Sulfonamide Antibiotics) [SULFA] Allergy (Unknown, Verified 07/19/23 07:43) ALL NARCOTICS Adverse Reaction (Uncoded 07/19/23 07:43) Vital Signs and I&O's Vital Signs: Vital Signs Temperature 98.5 F Pulse Rate 105 Pulse Rate 105 Pulse Rate 107 Pulse Rate 96 Pulse Rate 97 Pulse Rate 101 Pulse Rate 104 Pulse Rate 99 Pulse Rate 100 Pulse Rate 105 Pulse Rate 97 Pulse Rate 99 Pulse Rate 98 Pulse Rate 103 Pulse Rate 82 Pulse Rate 82 Pulse Rate 101 Pulse Rate 89 Pulse Rate 83 Pulse Rate 101 Pulse Rate 102 Pulse Rate 103 Pulse Rate 112 Pulse Rate 104 Pulse Rate 95 Pulse Rate 103 Pulse Rate 96 Pulse Rate 101 Pulse Rate 94 Pulse Rate 96 Pulse Rate 107 Pulse Rate 90 Pulse Rate 98 Pulse Rate 100 Respiratory Rate 21 Respiratory Rate 25 Respiratory Rate 28 Respiratory Rate 20 Respiratory Rate 19 Respiratory Rate 36 Respiratory Rate 23 Respiratory Rate 17 Respiratory Rate 22 Respiratory Rate 19 Respiratory Rate 26 Respiratory Rate 20 Respiratory Rate 19 Respiratory Rate 31 Respiratory Rate 10 Respiratory Rate 19 Respiratory Rate 22 Respiratory Rate 25 Respiratory Rate 15 Respiratory Rate 20 Respiratory Rate 25 Respiratory Rate 27 Respiratory Rate 28 Respiratory Rate 24 Respiratory Rate 27 Respiratory Rate 23 Respiratory Rate 23 Respiratory Rate 25 Respiratory Rate 21 Respiratory Rate 24 Respiratory Rate 31 Respiratory Rate 17 Respiratory Rate 18 Respiratory Rate 21 Blood Pressure 162/73 Blood Pressure 164/71 Blood Pressure 154/67 Blood Pressure 160/70 Blood Pressure 147/68 Blood Pressure 175/63 Blood Pressure 162/66 O2 Sat by Pulse Oximetry 94 O2 Sat by Pulse Oximetry 96 O2 Sat by Pulse Oximetry 96 O2 Sat by Pulse Oximetry 100 O2 Sat by Pulse Oximetry 93 O2 Sat by Pulse Oximetry 96 O2 Sat by Pulse Oximetry 96 O2 Sat by Pulse Oximetry 94 O2 Sat by Pulse Oximetry 95 O2 Sat by Pulse Oximetry 95 O2 Sat by Pulse Oximetry 96 O2 Sat by Pulse Oximetry 92 O2 Sat by Pulse Oximetry 94 O2 Sat by Pulse Oximetry 95 O2 Sat by Pulse Oximetry 90 O2 Sat by Pulse Oximetry 93 O2 Sat by Pulse Oximetry 96 O2 Sat by Pulse Oximetry 94 O2 Sat by Pulse Oximetry 91 O2 Sat by Pulse Oximetry 94 O2 Sat by Pulse Oximetry 95 O2 Sat by Pulse Oximetry 95 O2 Sat by Pulse Oximetry 96 O2 Sat by Pulse Oximetry 100 O2 Sat by Pulse Oximetry 92 O2 Sat by Pulse Oximetry 94 O2 Sat by Pulse Oximetry 94 O2 Sat by Pulse Oximetry 94 O2 Sat by Pulse Oximetry 93 O2 Sat by Pulse Oximetry 94 O2 Sat by Pulse Oximetry 94 O2 Sat by Pulse Oximetry 92 O2 Sat by Pulse Oximetry 94 O2 Sat by Pulse Oximetry 93 Intake and Output: Intake & Output 07/19/23 07/20/23 07/21/23 07/22/23 11:59 11:59 11:59 11:59 Intake Total 1984 4007 / 4007 Output Total 1450 / 1450 875 / 875 Balance 535 / 535 3132 / 3132 Physical Exam Oriented: Normal Eyes: Normal Ear: Normal Nose: Normal Throat: Normal and Dry Respiratory: Diminished Cardiovascular: Irregular and Edema Tenderness: Normal Skin: Decreased Turgur, Red and Wound Musculoskeletal: Right, Left, Leg, Swelling and Motor Deficit Psychiatric: Anxiety Mood Description: Anxious Affect: Anxious Speech Pattern: Inappropriate Laboratory and Diagnostics 07/23/23 05:45 07/23/23 05:45 Labs: 07/20/23 14:45 Urine,Clean Catch Urine Culture - Preliminary 07/19/23 08:40 Blood Blood Culture Gram Stain - Final 07/19/23 08:40 Blood Blood Culture - Preliminary 07/19/23 08:50 Blood Blood Culture Gram Stain - Final 07/19/23 08:50 Blood Blood Culture - Preliminary Laboratory WBC 5.8 X10^3/uL (3.6-10.0) 07/21/23 04:20 RBC 3.14 X10^6/uL (4.7-6.0) L 07/21/23 04:20 Hgb 9.7 g/dL (13.5-18.0) L 07/21/23 04:20 Hct 29.3 % (42.0-54.0) L 07/21/23 04:20 MCV 93.3 fL (80.0-100.0) 07/21/23 04:20 MCH 31.0 pg (27.0-34.0) 07/21/23 04:20 MCHC 33.2 g/dL (33.0-35.0) 07/21/23 04:20 RDW 14.7 % (11.6-16.5) 07/21/23 04:20 Plt Count 173 X10^3/uL (150.0-450.0) 07/21/23 04:20 MPV 10.1 fL (7.4-11.0) 07/21/23 04:20 Neut % (Auto) 81.1 % (42.0-75.0) H 07/21/23 04:20 Lymph % (Auto) 8.1 % (21.0-51.0) L 07/21/23 04:20 [place] % (Auto) 10.6 % (0.0-13.0) 07/21/23 04:20 Eos % (Auto) 0.0 % (0.9-2.9) L 07/21/23 04:20 Baso % (Auto) 0.2 % (0.2-1.0) 07/21/23 04:20 Neut # (Auto) 4.7 x10^3/uL (2.2-4.8) 07/21/23 04:20 Lymph # (Auto) 0.5 X10^3/uL (1.3-2.9) L 07/21/23 04:20 [place] # (Auto) 0.6 x10^3/uL (0.3-0.8) 07/21/23 04:20 Eos # (Auto) 0.0 x10^3/uL (0.0-0.2) 07/21/23 04:20 Baso # (Auto) 0.0 X10^3/uL (0.0-0.1) 07/21/23 04:20 Absolute Nucleated RBC 0.6 /100WBC 07/21/23 04:20 Sodium 143 mmol/L (136-145) 07/21/23 04:20 Corrected Sodium 148 mmol/L (136-145) H 07/21/23 04:20 Potassium 4.1 mmol/L (3.5-5.1) 07/21/23 04:20 Chloride 108 mmol/L (98-107) H 07/21/23 04:20 Carbon Dioxide 32.2 mmol/L (21-32) H 07/21/23 04:20 BUN 23 mg/dL (7-18) H 07/21/23 04:20 Creatinine 1.23 mg/dL (0.70-1.30) 07/21/23 04:20 Est GFR (MDRD) Af Amer > 60 (>60) 07/21/23 04:20 Est GFR (MDRD) Non-Af > 60 (>60) 07/21/23 04:20 Glucose 291 mg/dL (65-99) H 07/21/23 04:20 POC Glucose (mg/dL) 283 mg/dL (65-99) H 07/21/23 13:35 Hemoglobin A1c 12.2 % 07/20/23 04:53 Lactic Acid 0.9 mmol/L (0.4-2.0) 07/21/23 10:37 Calcium 8.0 mg/dL (8.5-10.1) L 07/21/23 04:20 Corrected Calcium 10.2 mg/dL (8.5-10.1) H 07/21/23 04:20 Magnesium 1.7 mg/dL (2.0-2.9) L 07/21/23 04:20 Total Bilirubin 0.50 mg/dL (0.2-1.0) 07/21/23 04:20 AST 21 Units/L (15-37) 07/21/23 04:20 ALT 14 Units/L (12-78) 07/21/23 04:20 Alkaline Phosphatase 74 Units/L (46-116) 07/21/23 04:20 Creatine Kinase 382 Units/L (39-308) H 07/19/23 08:40 Troponin I High Sens 19.3 ng/L (4.0-60.0) 07/19/23 08:40 B-Natriuretic Peptide 194 pg/mL (0-79) H 07/19/23 08:40 Total Protein 6.7 g/dL (6.4-8.2) 07/21/23 04:20 Albumin 1.2 g/dL (3.4-5.0) L 07/21/23 04:20 Globulin 5.5 g/dL (2.5-4.5) H 07/21/23 04:20 Albumin/Globulin Ratio 0.2 Ratio (1.1-2.1) L 07/21/23 04:20 Total PSA 1.01 ng/mL (0.13-4.0) 07/20/23 04:53 Free T4 1.17 ng/dL (0.76-1.46) 07/20/23 04:53 TSH 3rd Generation 0.741 uIU/mL (0.358-3.74) 07/20/23 04:53 Specimen Type Catherized urine 07/19/23 09:11 Urine Color Straw (YELLOW) 07/19/23 09:11 Urine Appearance Slightly hazy (CLEAR) 07/19/23 09:11 Urine pH 5.0 (5.0 - 8.0) 07/19/23 09:11 Ur Specific Black 1.010 (1.000-1.030) 07/19/23 09:11 Urine Protein 1+ (NEGATIVE) 07/19/23 09:11 Urine Glucose (UA) 4+ (NEGATIVE) 07/19/23 09:11 Urine Ketones 2+ (NEGATIVE) 07/19/23 09:11 Urine Blood 4+ (NEGATIVE) 07/19/23 09:11 Urine Nitrite Negative (NEGATIVE) 07/19/23 09:11 Urine Bilirubin Negative (NEGATIVE) 07/19/23 09:11 Urine Urobilinogen Normal (NORMAL) 07/19/23 09:11 Ur Leukocyte Esterase Negative (NEGATIVE) 07/19/23 09:11 Urine RBC 3-5 /HPF (0-3) A 07/19/23 09:11 Urine WBC 0-2 /HPF (0-5) 07/19/23 09:11 Ur Squamous Epith Cells Rare /HPF (NEGATIVE) 07/19/23 09:11 Amorphous Sediment Trace /HPF (NEGATIVE) 07/19/23 09:11 Urine Bacteria Trace /HPF (NEGATIVE) 07/19/23 09:11 Ur Culture Indicated? No/not indicated 07/19/23 09:11 Acetone, Semi-Quant Negative (NEGATIVE) 07/21/23 08:31 Resp Viral Panel (PCR) See scanned report 07/19/23 13:19 Plan (1) Pneumonia: Status: Acute (2) Ulcer of ankle due to type 2 diabetes mellitus: Status: Acute Plan: OBTAIN SPUTUM CULTURE, URINE CULTURE, UA, EKG, CHEST XRAY, A1C, PSA, TSH/FREE T4. PT/OT EVAL. CONTINUE IV ABX, IV HYDRATION, SUPPLEMENTAL 02 PRN, CARDIAC MONITORING, BS CONTROL, STRICT I&O'S, WOUND CARE. (3) Type 2 diabetes mellitus treated with insulin: Status: Acute (4) GERD (gastroesophageal reflux disease): Status: Chronic (5) Hypertension: Status: Chronic (6) Cellulitis of leg without foot, left: Status: Acute (7) Open wound, lower leg: Status: Acute (8) Arthritis: Status: Chronic
--- NOTE | 2023-07-23 11:56 | PCM.PROG ---
Progress Note Progress Note for Day of Date of Exam: 07/22/23 Subjective Subjective: Patient is 78 YEAR OLD WHITE MALE PATIENT WHO WAS AN ER ADMISSION ON 07/19/23 AFTER PRESENTING FOR AMS AND HYPERGLYCEMIA. REPORTEDLY, PT HAD ALSO HAD A RECENT FALL PRIOR TO ADMISSION WITH BRUISING TO LOWER BACK. ER WORKUP REVEALED GLUCOSE GREATER THAN 700 AND CHEST XRAY SHOWED PNEUMONIA. PT WAS ADMITTED FOR FURTHER WORKUP AND TREATMENT. UPON ADMISSION, PT WAS STARTED ON IV ABX, IV HYDRATION, BS CONTROL, AND BLOOD CULTURES OBTAINED. BLOOD CULTURES DID GROW OUT STAPHYLOCOCCUS AUREUS. WE OBTAINED A REPEAT CHEST XRAY ON 07/20/23 THAT SHOWED NO ACUTE CAREDIOPULMONARY ABNORMALITY. URINE CULTURE SHOWS NO GROWTH, AIT OBTAINED ON ADMISSION RESULTED BACK POSITIVE FOR ECOLI, HAEMOPHILUS INFLUENZE, STAPHYLOCOCCUS AUERUS. A1C WAS 12.2. WE OBTAINED REPEAT BLOOD CULTURES YESTERDAY THAT ARE CURRENTLY PENDING AT THIS TIME. ABG YESTERDAY: PH 7.530, PC02 35, P02 75, HCO3 29.2, 02 SAT 96, BASE EXCESS 6.4, FIO02 21. AM LABS: WBC 5.0, HGB 8.7, BUN 18/CREATININE 1.12. Past Medical Family Social History Allergies: Allergies ciprofloxacin [Cipro] Allergy (Unknown, Verified 07/19/23 07:43) Reason: Drug allergy codeine Allergy (Unknown, Verified 07/19/23 07:43) morphine Allergy (Unknown, Verified 07/19/23 07:43) Penicillins Allergy (Unknown, Verified 07/19/23 07:43) Sulfa (Sulfonamide Antibiotics) [SULFA] Allergy (Unknown, Verified 07/19/23 07:43) ALL NARCOTICS Adverse Reaction (Uncoded 07/19/23 07:43) Vital Signs and I&O's Vital Signs: Vital Signs Temperature 98.2 F Pulse Rate 94 Pulse Rate 94 Pulse Rate 79 Pulse Rate 81 Respiratory Rate 18 Respiratory Rate 9 Respiratory Rate 15 Blood Pressure 141/63 Blood Pressure 126/61 O2 Sat by Pulse Oximetry 100 O2 Sat by Pulse Oximetry 100 O2 Sat by Pulse Oximetry 96 O2 Sat by Pulse Oximetry 96 Intake and Output: Intake & Output 07/20/23 07/21/23 07/22/23 07/23/23 11:59 11:59 11:59 11:59 Intake Total 1984 / 1984 4007 / 4007 2780 / 2780 Output Total 1450 / 1450 875 / 875 1800 / 1800 Balance 535 / 535 3132 / 3132 980 / 980 Physical Exam Oriented: Normal Eyes: Normal Ear: Normal Nose: Normal Throat: Normal and Dry Respiratory: Diminished Cardiovascular: Irregular and Edema Tenderness: Normal Skin: Decreased Turgur, Red and Wound Musculoskeletal: Right, Left, Leg, Swelling and Motor Deficit Psychiatric: Anxiety Mood Description: Anxious Affect: Anxious Speech Pattern: Inappropriate Laboratory and Diagnostics 07/23/23 05:45 07/23/23 05:45 Labs: 07/22/23 10:38 Sputum - Expectorated Sputum - Final 07/21/23 08:43 Blood Blood Culture Gram Stain - Final 07/21/23 08:43 Blood Blood Culture - Preliminary 07/20/23 14:45 Urine,Clean Catch Urine Culture - Final 07/19/23 08:50 Blood Blood Culture Gram Stain - Final 07/19/23 08:50 Blood Blood Culture - Final Staphylococcus Aureus 07/19/23 08:40 Blood Blood Culture Gram Stain - Final 07/19/23 08:40 Blood Blood Culture - Final Staphylococcus Aureus 07/21/23 08:31 Blood Blood Culture Gram Stain - Final Laboratory WBC 5.0 X10^3/uL (3.6-10.0) 07/22/23 04:45 RBC 2.83 X10^6/uL (4.7-6.0) L 07/22/23 04:45 Hgb 8.7 g/dL (13.5-18.0) L 07/22/23 04:45 Hct 26.8 % (42.0-54.0) L 07/22/23 04:45 MCV 94.7 fL (80.0-100.0) 07/22/23 04:45 MCH 30.8 pg (27.0-34.0) 07/22/23 04:45 MCHC 32.5 g/dL (33.0-35.0) L 07/22/23 04:45 RDW 15.3 % (11.6-16.5) 07/22/23 04:45 Plt Count 151 X10^3/uL (150.0-450.0) 07/22/23 04:45 MPV 10.5 fL (7.4-11.0) 07/22/23 04:45 Neut % (Auto) 77.7 % (42.0-75.0) H 07/22/23 04:45 Lymph % (Auto) 7.4 % (21.0-51.0) L 07/22/23 04:45 [place] % (Auto) 14.5 % (0.0-13.0) H 07/22/23 04:45 Eos % (Auto) 0.0 % (0.9-2.9) L 07/22/23 04:45 Baso % (Auto) 0.4 % (0.2-1.0) 07/22/23 04:45 Neut # (Auto) 3.9 x10^3/uL (2.2-4.8) 07/22/23 04:45 Lymph # (Auto) 0.4 X10^3/uL (1.3-2.9) L 07/22/23 04:45 [place] # (Auto) 0.7 x10^3/uL (0.3-0.8) 07/22/23 04:45 Eos # (Auto) 0.0 x10^3/uL (0.0-0.2) 07/22/23 04:45 Baso # (Auto) 0.0 X10^3/uL (0.0-0.1) 07/22/23 04:45 Absolute Nucleated RBC 0.4 /100WBC 07/22/23 04:45 Sample Site [place] 07/21/23 16:56 ABG pH 7.530 (7.35-7.45) H 07/21/23 16:56 ABG pCO2 35.0 mmHg (35.0-45.0) 07/21/23 16:56 ABG pO2 75.0 mmHg (80.0-100.0) L 07/21/23 16:56 ABG HCO3 29.2 mmol/L (22-26) H 07/21/23 16:56 ABG O2 Saturation 96.0 % (90-100) 07/21/23 16:56 ABG Base Excess 6.4 mmol/L (-2.0-2.0) H 07/21/23 16:56 Santos Test Pos 07/21/23 16:56 A-a Gradient 31.0 mmHg 07/21/23 16:56 FiO2 21.0 07/21/23 16:56 Blood Gas Comments Pt jovan well elj cdn 07/21/23 16:56 Sodium 143 mmol/L (136-145) 07/22/23 04:45 Corrected Sodium 148 mmol/L (136-145) H 07/22/23 04:45 Potassium 4.2 mmol/L (3.5-5.1) 07/22/23 04:45 Chloride 108 mmol/L (98-107) H 07/22/23 04:45 Carbon Dioxide 29.7 mmol/L (21-32) 07/22/23 04:45 BUN 18 mg/dL (7-18) 07/22/23 04:45 Creatinine 1.12 mg/dL (0.70-1.30) 07/22/23 04:45 Est GFR (MDRD) Af Amer > 60 (>60) 07/22/23 04:45 Est GFR (MDRD) Non-Af > 60 (>60) 07/22/23 04:45 Glucose 318 mg/dL (65-99) H 07/22/23 04:45 POC Glucose (mg/dL) 380 mg/dL (65-99) H 07/22/23 11:22 Hemoglobin A1c 12.2 % 07/20/23 04:53 Lactic Acid 0.9 mmol/L (0.4-2.0) 07/21/23 10:37 Calcium 7.7 mg/dL (8.5-10.1) L 07/22/23 04:45 Corrected Calcium 10.2 mg/dL (8.5-10.1) H 07/22/23 04:45 Magnesium 1.6 mg/dL (2.0-2.9) L 07/22/23 04:45 Total Bilirubin 0.40 mg/dL (0.2-1.0) 07/22/23 04:45 AST 21 Units/L (15-37) 07/22/23 04:45 ALT 10 Units/L (12-78) L 07/22/23 04:45 Alkaline Phosphatase 62 Units/L (46-116) 07/22/23 04:45 Creatine Kinase 382 Units/L (39-308) H 07/19/23 08:40 Troponin I High Sens 19.3 ng/L (4.0-60.0) 07/19/23 08:40 B-Natriuretic Peptide 194 pg/mL (0-79) H 07/19/23 08:40 Total Protein 6.0 g/dL (6.4-8.2) L 07/22/23 04:45 Albumin 0.9 g/dL (3.4-5.0) L 07/22/23 04:45 Globulin 5.1 g/dL (2.5-4.5) H 07/22/23 04:45 Albumin/Globulin Ratio 0.2 Ratio (1.1-2.1) L 07/22/23 04:45 Total PSA 1.01 ng/mL (0.13-4.0) 07/20/23 04:53 Free T4 1.17 ng/dL (0.76-1.46) 07/20/23 04:53 TSH 3rd Generation 0.741 uIU/mL (0.358-3.74) 07/20/23 04:53 Specimen Type Catherized urine 07/19/23 09:11 Urine Color Straw (YELLOW) 07/19/23 09:11 Urine Appearance Slightly hazy (CLEAR) 07/19/23 09:11 Urine pH 5.0 (5.0 - 8.0) 07/19/23 09:11 Ur Specific [place] 1.010 (1.000-1.030) 07/19/23 09:11 Urine Protein 1+ (NEGATIVE) 07/19/23 09:11 Urine Glucose (UA) 4+ (NEGATIVE) 07/19/23 09:11 Urine Ketones 2+ (NEGATIVE) 07/19/23 09:11 Urine Blood 4+ (NEGATIVE) 07/19/23 09:11 Urine Nitrite Negative (NEGATIVE) 07/19/23 09:11 Urine Bilirubin Negative (NEGATIVE) 07/19/23 09:11 Urine Urobilinogen Normal (NORMAL) 07/19/23 09:11 Ur Leukocyte Esterase Negative (NEGATIVE) 07/19/23 09:11 Urine RBC 3-5 /HPF (0-3) A 07/19/23 09:11 Urine WBC 0-2 /HPF (0-5) 07/19/23 09:11 Ur Squamous Epith Cells Rare /HPF (NEGATIVE) 07/19/23 09:11 Amorphous Sediment Trace /HPF (NEGATIVE) 07/19/23 09:11 Urine Bacteria Trace /HPF (NEGATIVE) 07/19/23 09:11 Ur Culture Indicated? No/not indicated 07/19/23 09:11 Acetone, Semi-Quant Negative (NEGATIVE) 07/21/23 08:31 Resp Viral Panel (PCR) See scanned report 07/19/23 13:19 Plan (1) Pneumonia: Status: Acute (2) Ulcer of ankle due to type 2 diabetes mellitus: Status: Acute Plan: CONSULT PHARMACY FOR ABX THERAPY FOR POSITIVE BLOOD CULTURES. CONTINUE IV ABX, IV HYDRATION, SUPPLEMENTAL 02 PRN, CARDIAC MONITORING, BS CONTROL, STRICT I&O'S, WOUND CARE. (3) Type 2 diabetes mellitus treated with insulin: Status: Acute (4) GERD (gastroesophageal reflux disease): Status: Chronic (5) Hypertension: Status: Chronic (6) Cellulitis of leg without foot, left: Status: Acute (7) Open wound, lower leg: Status: Acute (8) Arthritis: Status: Chronic
--- NOTE | 2023-07-23 11:58 | PCM.PROG ---
Progress Note Progress Note for Day of Date of Exam: 07/23/23 Subjective Subjective: Patient is 78 YEAR OLD WHITE MALE PATIENT WHO WAS AN ER ADMISSION ON 07/19/23 AFTER PRESENTING FOR AMS AND HYPERGLYCEMIA. REPORTEDLY, PT HAD ALSO HAD A RECENT FALL PRIOR TO ADMISSION WITH BRUISING TO LOWER BACK. ER WORKUP REVEALED GLUCOSE GREATER THAN 700 AND CHEST XRAY SHOWED PNEUMONIA. PT WAS ADMITTED FOR FURTHER WORKUP AND TREATMENT. UPON ADMISSION, PT WAS STARTED ON IV ABX, IV HYDRATION, BS CONTROL, AND BLOOD CULTURES OBTAINED. BLOOD CULTURES DID GROW OUT STAPHYLOCOCCUS AUREUS. WE OBTAINED A REPEAT CHEST XRAY ON 07/20/23 THAT SHOWED NO ACUTE CAREDIOPULMONARY ABNORMALITY. URINE CULTURE SHOWS NO GROWTH, AIT OBTAINED ON ADMISSION RESULTED BACK POSITIVE FOR ECOLI, HAEMOPHILUS INFLUENZE, STAPHYLOCOCCUS AUERUS. A1C WAS 12.2. WE OBTAINED REPEAT BLOOD CULTURES ON 07/21/23 THAT SHOWED STAPHYLOCOCCUS AUREUS. SPUTUM CULTURE OBTAINED YESTERDAY ALSO POSITIVE FOR STAPH. ABG ON 07/21/23: PH 7.530, PC02 35, P02 75, HCO3 29.2, 02 SAT 96, BASE EXCESS 6.4, FIO02 21. CASE MANAGEMENT HAS DISCUSSED [facility] FOR SHORT TERM REHAB AND PATIENT/FAMILY IS AGREEABLE. HE HAS AN ONGOING CASE WITH APS. ON PHYSICAL EXAM, PT IS MORE AWAKE AND ORIENTED TODAY. MORNING LABS: HGB 9.4, WBC 5.2, BUN 18/CREATININE 0.99. Past Medical Family Social History Allergies: Allergies ciprofloxacin [Cipro] Allergy (Unknown, Verified 07/19/23 07:43) Reason: Drug allergy codeine Allergy (Unknown, Verified 07/19/23 07:43) morphine Allergy (Unknown, Verified 07/19/23 07:43) Penicillins Allergy (Unknown, Verified 07/19/23 07:43) Sulfa (Sulfonamide Antibiotics) [SULFA] Allergy (Unknown, Verified 07/19/23 07:43) ALL NARCOTICS Adverse Reaction (Uncoded 07/19/23 07:43) Vital Signs and I&O's Vital Signs: Vital Signs Temperature 97.8 F Pulse Rate 74 Pulse Rate 83 Pulse Rate 81 Pulse Rate 113 Pulse Rate 83 Pulse Rate 73 Pulse Rate 88 Pulse Rate 67 Pulse Rate 68 Pulse Rate 67 Pulse Rate 81 Pulse Rate 74 Pulse Rate 82 Pulse Rate 95 Respiratory Rate 31 Respiratory Rate 17 Respiratory Rate 19 Respiratory Rate 25 Respiratory Rate 12 Respiratory Rate 14 Respiratory Rate 15 Respiratory Rate 21 Respiratory Rate 14 Respiratory Rate 17 Respiratory Rate 14 Respiratory Rate 15 Respiratory Rate 14 Respiratory Rate 81 Blood Pressure 113/56 Blood Pressure 156/69 Blood Pressure 156/70 Blood Pressure 150/115 Blood Pressure 151/67 Blood Pressure 159/71 Blood Pressure 159/71 Blood Pressure 144/63 Blood Pressure 144/63 Blood Pressure 128/75 Blood Pressure 126/75 Blood Pressure 136/65 Blood Pressure 136/65 O2 Sat by Pulse Oximetry 100 O2 Sat by Pulse Oximetry 99 O2 Sat by Pulse Oximetry 99 O2 Sat by Pulse Oximetry 99 O2 Sat by Pulse Oximetry 93 O2 Sat by Pulse Oximetry 93 O2 Sat by Pulse Oximetry 95 O2 Sat by Pulse Oximetry 95 O2 Sat by Pulse Oximetry 96 O2 Sat by Pulse Oximetry 95 O2 Sat by Pulse Oximetry 94 O2 Sat by Pulse Oximetry 96 O2 Sat by Pulse Oximetry 95 O2 Sat by Pulse Oximetry 21 Intake and Output: Intake & Output 07/20/23 07/21/23 07/22/23 07/23/23 11:59 11:59 11:59 11:59 Intake Total 1984 / 1984 4007 / 4007 2780 / 2780 5417 / 5417 Output Total 1450 / 1450 875 / 875 1800 / 1800 2600 / 2600 Balance 535 / 535 3132 / 3132 980 / 980 2817 / 2817 Physical Exam Oriented: Normal Eyes: Normal Ear: Normal Nose: Normal Throat: Normal and Dry Respiratory: Diminished Cardiovascular: Irregular and Edema Tenderness: Normal Skin: Decreased Turgur, Red, Wound and Other (RIGHT KNEE- THICK, DARK COLORED SCAB ) Musculoskeletal: Right, Left, Leg, Swelling and Motor Deficit Psychiatric: Anxiety Mood Description: Anxious Affect: Anxious Speech Pattern: Clear and Appropriate Laboratory and Diagnostics 07/23/23 05:45 07/23/23 05:45 Labs: 07/22/23 10:38 Sputum - Expectorated Sputum Sputum Culture - Preliminary 07/22/23 10:38 Sputum - Expectorated Sputum - Final 07/21/23 08:43 Blood Blood Culture Gram Stain - Final 07/21/23 08:43 Blood Blood Culture - Final Staphylococcus Aureus 07/21/23 08:31 Blood Blood Culture Gram Stain - Final 07/21/23 08:31 Blood Blood Culture - Final Staphylococcus Aureus 07/20/23 14:45 Urine,Clean Catch Urine Culture - Final 07/19/23 08:50 Blood Blood Culture Gram Stain - Final 07/19/23 08:50 Blood Blood Culture - Final Staphylococcus Aureus 07/19/23 08:40 Blood Blood Culture Gram Stain - Final 07/19/23 08:40 Blood Blood Culture - Final Staphylococcus Aureus Laboratory WBC 5.2 X10^3/uL (3.6-10.0) 07/23/23 05:45 RBC 3.04 X10^6/uL (4.7-6.0) L 07/23/23 05:45 Hgb 9.4 g/dL (13.5-18.0) L 07/23/23 05:45 Hct 28.7 % (42.0-54.0) L 07/23/23 05:45 MCV 94.5 fL (80.0-100.0) 07/23/23 05:45 MCH 31.0 pg (27.0-34.0) 07/23/23 05:45 MCHC 32.8 g/dL (33.0-35.0) L 07/23/23 05:45 RDW 15.3 % (11.6-16.5) 07/23/23 05:45 Plt Count 135 X10^3/uL (150.0-450.0) L 07/23/23 05:45 MPV 10.2 fL (7.4-11.0) 07/23/23 05:45 Neut % (Auto) 70.0 % (42.0-75.0) 07/23/23 05:45 Lymph % (Auto) 13.7 % (21.0-51.0) L 07/23/23 05:45 [place] % (Auto) 15.4 % (0.0-13.0) H 07/23/23 05:45 Eos % (Auto) 0.6 % (0.9-2.9) L 07/23/23 05:45 Baso % (Auto) 0.3 % (0.2-1.0) 07/23/23 05:45 Neut # (Auto) 3.6 x10^3/uL (2.2-4.8) 07/23/23 05:45 Lymph # (Auto) 0.7 X10^3/uL (1.3-2.9) L 07/23/23 05:45 [place] # (Auto) 0.8 x10^3/uL (0.3-0.8) 07/23/23 05:45 Eos # (Auto) 0.0 x10^3/uL (0.0-0.2) 07/23/23 05:45 Baso # (Auto) 0.0 X10^3/uL (0.0-0.1) 07/23/23 05:45 Absolute Nucleated RBC 0.2 /100WBC 07/23/23 05:45 Sample Site [place] 07/21/23 16:56 ABG pH 7.530 (7.35-7.45) H 07/21/23 16:56 ABG pCO2 35.0 mmHg (35.0-45.0) 07/21/23 16:56 ABG pO2 75.0 mmHg (80.0-100.0) L 07/21/23 16:56 ABG HCO3 29.2 mmol/L (22-26) H 07/21/23 16:56 ABG O2 Saturation 96.0 % (90-100) 07/21/23 16:56 ABG Base Excess 6.4 mmol/L (-2.0-2.0) H 07/21/23 16:56 Santos Test Pos 07/21/23 16:56 A-a Gradient 31.0 mmHg 07/21/23 16:56 FiO2 21.0 07/21/23 16:56 Blood Gas Comments Pt jovan well elj cdn 07/21/23 16:56 Sodium 137 mmol/L (136-145) 07/23/23 05:45 Corrected Sodium 144 mmol/L (136-145) 07/23/23 05:45 Potassium 4.2 mmol/L (3.5-5.1) 07/23/23 05:45 Chloride 104 mmol/L (98-107) 07/23/23 05:45 Carbon Dioxide 31.0 mmol/L (21-32) 07/23/23 05:45 BUN 18 mg/dL (7-18) 07/23/23 05:45 Creatinine 0.99 mg/dL (0.70-1.30) 07/23/23 05:45 Est GFR (MDRD) Af Amer > 60 (>60) 07/23/23 05:45 Est GFR (MDRD) Non-Af > 60 (>60) 07/23/23 05:45 Glucose 371 mg/dL (65-99) H 07/23/23 05:45 POC Glucose (mg/dL) 342 mg/dL (65-99) H 07/23/23 05:11 Hemoglobin A1c 12.2 % 07/20/23 04:53 Lactic Acid 0.9 mmol/L (0.4-2.0) 07/21/23 10:37 Calcium 7.7 mg/dL (8.5-10.1) L 07/23/23 05:45 Corrected Calcium 10.3 mg/dL (8.5-10.1) H 07/23/23 05:45 Magnesium 1.6 mg/dL (2.0-2.9) L 07/22/23 04:45 Total Bilirubin 0.30 mg/dL (0.2-1.0) 07/23/23 05:45 AST 24 Units/L (15-37) 07/23/23 05:45 ALT 9 Units/L (12-78) L 07/23/23 05:45 Alkaline Phosphatase 63 Units/L (46-116) 07/23/23 05:45 Creatine Kinase 382 Units/L (39-308) H 07/19/23 08:40 Troponin I High Sens 19.3 ng/L (4.0-60.0) 07/19/23 08:40 B-Natriuretic Peptide 194 pg/mL (0-79) H 07/19/23 08:40 Total Protein 5.9 g/dL (6.4-8.2) L 07/23/23 05:45 Albumin 0.8 g/dL (3.4-5.0) L 07/23/23 05:45 Globulin 5.1 g/dL (2.5-4.5) H 07/23/23 05:45 Albumin/Globulin Ratio 0.2 Ratio (1.1-2.1) L 07/23/23 05:45 Total PSA 1.01 ng/mL (0.13-4.0) 07/20/23 04:53 Free T4 1.17 ng/dL (0.76-1.46) 07/20/23 04:53 TSH 3rd Generation 0.741 uIU/mL (0.358-3.74) 07/20/23 04:53 Specimen Type Catherized urine 07/19/23 09:11 Urine Color Straw (YELLOW) 07/19/23 09:11 Urine Appearance Slightly hazy (CLEAR) 07/19/23 09:11 Urine pH 5.0 (5.0 - 8.0) 07/19/23 09:11 Ur Specific [place] 1.010 (1.000-1.030) 07/19/23 09:11 Urine Protein 1+ (NEGATIVE) 07/19/23 09:11 Urine Glucose (UA) 4+ (NEGATIVE) 07/19/23 09:11 Urine Ketones 2+ (NEGATIVE) 07/19/23 09:11 Urine Blood 4+ (NEGATIVE) 07/19/23 09:11 Urine Nitrite Negative (NEGATIVE) 07/19/23 09:11 Urine Bilirubin Negative (NEGATIVE) 07/19/23 09:11 Urine Urobilinogen Normal (NORMAL) 07/19/23 09:11 Ur Leukocyte Esterase Negative (NEGATIVE) 07/19/23 09:11 Urine RBC 3-5 /HPF (0-3) A 07/19/23 09:11 Urine WBC 0-2 /HPF (0-5) 07/19/23 09:11 Ur Squamous Epith Cells Rare /HPF (NEGATIVE) 07/19/23 09:11 Amorphous Sediment Trace /HPF (NEGATIVE) 07/19/23 09:11 Urine Bacteria Trace /HPF (NEGATIVE) 07/19/23 09:11 Ur Culture Indicated? No/not indicated 07/19/23 09:11 Random Vancomycin 10.0 ug/mL 07/23/23 05:45 Acetone, Semi-Quant Negative (NEGATIVE) 07/21/23 08:31 Resp Viral Panel (PCR) See scanned report 07/19/23 13:19 Plan (1) Pneumonia: Status: Acute Plan: REPE (2) Ulcer of ankle due to type 2 diabetes mellitus: Status: Acute Plan: OBTAIN CHEST XRAY, CONSULT DR CORDOBA WITH CONCERN FOR SKIN AREA TO RIGHT KNEE. CONTINUE IV ABX, IV HYDRATION, SUPPLEMENTAL 02 PRN, CARDIAC MONITORING, BS CONTROL, STRICT I&O'S, WOUND CARE. (3) Type 2 diabetes mellitus treated with insulin: Status: Acute (4) GERD (gastroesophageal reflux disease): Status: Chronic (5) Hypertension: Status: Chronic (6) Cellulitis of leg without foot, left: Status: Acute (7) Open wound, lower leg: Status: Acute (8) Arthritis: Status: Chronic
--- NOTE | 2023-07-23 11:58 | PCM.PROG ---
Progress Note Progress Note for Day of Date of Exam: 07/21/23 Subjective Subjective: Patient is 78 YEAR OLD WHITE MALE PATIENT WHO WAS AN ER ADMISSION ON 07/19/23 AFTER PRESENTING FOR AMS AND HYPERGLYCEMIA. REPORTEDLY, PT HAD ALSO HAD A RECENT FALL PRIOR TO ADMISSION WITH BRUISING TO LOWER BACK. ER WORKUP REVEALED GLUCOSE GREATER THAN 700 AND CHEST XRAY SHOWED PNEUMONIA. PT WAS ADMITTED FOR FURTHER WORKUP AND TREATMENT. UPON ADMISSION, PT WAS STARTED ON IV ABX, IV HYDRATION, BS CONTROL, AND BLOOD CULTURES OBTAINED. BLOOD CULTURES DID GROW OUT COAGULASE POSITIVE STAPH. WE OBTAINED A REPEAT CHEST XRAY YESTERDAY MORNING THAT SHOWED NO ACUTE CAREDIOPULMONARY ABNORMALITY. URINE CUTLURE SHOWS NO GROWTH, AIT OBTAINED ON ADMISSION RESULTED BACK YESTERDAY POSITIVE FOR ECOLI, HAEMOPHILUS INFLUENZE, STAPHYLOCOCCUS AUERUS. A1C WAS 12.2. AM LABS: WBC 5.8 HGB 9.7, BUN 23/CREATININE 1.23, GLUCOSE 291. Past Medical Family Social History Allergies: Allergies ciprofloxacin [Cipro] Allergy (Unknown, Verified 07/19/23 07:43) Reason: Drug allergy codeine Allergy (Unknown, Verified 07/19/23 07:43) morphine Allergy (Unknown, Verified 07/19/23 07:43) Penicillins Allergy (Unknown, Verified 07/19/23 07:43) Sulfa (Sulfonamide Antibiotics) [SULFA] Allergy (Unknown, Verified 07/19/23 07:43) ALL NARCOTICS Adverse Reaction (Uncoded 07/19/23 07:43) Vital Signs and I&O's Vital Signs: Vital Signs Pulse Rate 106 Pulse Rate 107 Pulse Rate 126 Pulse Rate 105 Pulse Rate 105 Pulse Rate 105 Pulse Rate 107 Pulse Rate 96 Pulse Rate 97 Pulse Rate 101 Pulse Rate 104 Pulse Rate 99 Pulse Rate 100 Pulse Rate 105 Pulse Rate 97 Pulse Rate 99 Pulse Rate 98 Pulse Rate 103 Pulse Rate 82 Pulse Rate 82 Pulse Rate 101 Pulse Rate 89 Pulse Rate 83 Pulse Rate 101 Pulse Rate 102 Pulse Rate 103 Pulse Rate 112 Pulse Rate 104 Pulse Rate 95 Pulse Rate 103 Pulse Rate 96 Pulse Rate 101 Respiratory Rate 14 Respiratory Rate 21 Respiratory Rate 22 Respiratory Rate 22 Respiratory Rate 21 Respiratory Rate 25 Respiratory Rate 28 Respiratory Rate 20 Respiratory Rate 19 Respiratory Rate 36 Respiratory Rate 23 Respiratory Rate 17 Respiratory Rate 22 Respiratory Rate 19 Respiratory Rate 26 Respiratory Rate 20 Respiratory Rate 19 Respiratory Rate 31 Respiratory Rate 10 Respiratory Rate 19 Respiratory Rate 22 Respiratory Rate 25 Respiratory Rate 15 Respiratory Rate 20 Respiratory Rate 25 Respiratory Rate 27 Respiratory Rate 28 Respiratory Rate 24 Respiratory Rate 27 Respiratory Rate 23 Respiratory Rate 23 Respiratory Rate 25 Blood Pressure 151/68 Blood Pressure 162/73 Blood Pressure 164/71 Blood Pressure 154/67 Blood Pressure 160/70 Blood Pressure 147/68 O2 Sat by Pulse Oximetry 95 O2 Sat by Pulse Oximetry 95 O2 Sat by Pulse Oximetry 96 O2 Sat by Pulse Oximetry 95 O2 Sat by Pulse Oximetry 94 O2 Sat by Pulse Oximetry 96 O2 Sat by Pulse Oximetry 96 O2 Sat by Pulse Oximetry 100 O2 Sat by Pulse Oximetry 93 O2 Sat by Pulse Oximetry 96 O2 Sat by Pulse Oximetry 96 O2 Sat by Pulse Oximetry 94 O2 Sat by Pulse Oximetry 95 O2 Sat by Pulse Oximetry 95 O2 Sat by Pulse Oximetry 96 O2 Sat by Pulse Oximetry 92 O2 Sat by Pulse Oximetry 94 O2 Sat by Pulse Oximetry 95 O2 Sat by Pulse Oximetry 90 O2 Sat by Pulse Oximetry 93 O2 Sat by Pulse Oximetry 96 O2 Sat by Pulse Oximetry 94 O2 Sat by Pulse Oximetry 91 O2 Sat by Pulse Oximetry 94 O2 Sat by Pulse Oximetry 95 O2 Sat by Pulse Oximetry 95 O2 Sat by Pulse Oximetry 96 O2 Sat by Pulse Oximetry 100 O2 Sat by Pulse Oximetry 92 O2 Sat by Pulse Oximetry 94 O2 Sat by Pulse Oximetry 94 O2 Sat by Pulse Oximetry 94 Intake and Output: Intake & Output 07/19/23 07/20/23 07/21/23 07/22/23 11:59 11:59 11:59 11:59 Intake Total 1984 4007 / 4007 Output Total 1450 / 1450 875 / 875 Balance 535 / 535 3132 / 3132 Physical Exam Oriented: Normal Eyes: Normal Ear: Normal Nose: Normal Throat: Normal and Dry Respiratory: Diminished Cardiovascular: Irregular and Edema Tenderness: Normal Skin: Decreased Turgur, Red and Wound Musculoskeletal: Right, Left, Leg, Swelling and Motor Deficit Psychiatric: Anxiety Mood Description: Anxious Affect: Anxious Speech Pattern: Inappropriate Laboratory and Diagnostics 07/23/23 05:45 07/23/23 05:45 Labs: 07/20/23 14:45 Urine,Clean Catch Urine Culture - Preliminary 07/19/23 08:40 Blood Blood Culture Gram Stain - Final 07/19/23 08:40 Blood Blood Culture - Preliminary 07/19/23 08:50 Blood Blood Culture Gram Stain - Final 07/19/23 08:50 Blood Blood Culture - Preliminary Laboratory WBC 5.8 X10^3/uL (3.6-10.0) 07/21/23 04:20 RBC 3.14 X10^6/uL (4.7-6.0) L 07/21/23 04:20 Hgb 9.7 g/dL (13.5-18.0) L 07/21/23 04:20 Hct 29.3 % (42.0-54.0) L 07/21/23 04:20 MCV 93.3 fL (80.0-100.0) 07/21/23 04:20 MCH 31.0 pg (27.0-34.0) 07/21/23 04:20 MCHC 33.2 g/dL (33.0-35.0) 07/21/23 04:20 RDW 14.7 % (11.6-16.5) 07/21/23 04:20 Plt Count 173 X10^3/uL (150.0-450.0) 07/21/23 04:20 MPV 10.1 fL (7.4-11.0) 07/21/23 04:20 Neut % (Auto) 81.1 % (42.0-75.0) H 07/21/23 04:20 Lymph % (Auto) 8.1 % (21.0-51.0) L 07/21/23 04:20 [place] % (Auto) 10.6 % (0.0-13.0) 07/21/23 04:20 Eos % (Auto) 0.0 % (0.9-2.9) L 07/21/23 04:20 Baso % (Auto) 0.2 % (0.2-1.0) 07/21/23 04:20 Neut # (Auto) 4.7 x10^3/uL (2.2-4.8) 07/21/23 04:20 Lymph # (Auto) 0.5 X10^3/uL (1.3-2.9) L 07/21/23 04:20 [place] # (Auto) 0.6 x10^3/uL (0.3-0.8) 07/21/23 04:20 Eos # (Auto) 0.0 x10^3/uL (0.0-0.2) 07/21/23 04:20 Baso # (Auto) 0.0 X10^3/uL (0.0-0.1) 07/21/23 04:20 Absolute Nucleated RBC 0.6 /100WBC 07/21/23 04:20 Sodium 143 mmol/L (136-145) 07/21/23 04:20 Corrected Sodium 148 mmol/L (136-145) H 07/21/23 04:20 Potassium 4.1 mmol/L (3.5-5.1) 07/21/23 04:20 Chloride 108 mmol/L (98-107) H 07/21/23 04:20 Carbon Dioxide 32.2 mmol/L (21-32) H 07/21/23 04:20 BUN 23 mg/dL (7-18) H 07/21/23 04:20 Creatinine 1.23 mg/dL (0.70-1.30) 07/21/23 04:20 Est GFR (MDRD) Af Amer > 60 (>60) 07/21/23 04:20 Est GFR (MDRD) Non-Af > 60 (>60) 07/21/23 04:20 Glucose 291 mg/dL (65-99) H 07/21/23 04:20 POC Glucose (mg/dL) 283 mg/dL (65-99) H 07/21/23 13:35 Hemoglobin A1c 12.2 % 07/20/23 04:53 Lactic Acid 0.9 mmol/L (0.4-2.0) 07/21/23 10:37 Calcium 8.0 mg/dL (8.5-10.1) L 07/21/23 04:20 Corrected Calcium 10.2 mg/dL (8.5-10.1) H 07/21/23 04:20 Magnesium 1.7 mg/dL (2.0-2.9) L 07/21/23 04:20 Total Bilirubin 0.50 mg/dL (0.2-1.0) 07/21/23 04:20 AST 21 Units/L (15-37) 07/21/23 04:20 ALT 14 Units/L (12-78) 07/21/23 04:20 Alkaline Phosphatase 74 Units/L (46-116) 07/21/23 04:20 Creatine Kinase 382 Units/L (39-308) H 07/19/23 08:40 Troponin I High Sens 19.3 ng/L (4.0-60.0) 07/19/23 08:40 B-Natriuretic Peptide 194 pg/mL (0-79) H 07/19/23 08:40 Total Protein 6.7 g/dL (6.4-8.2) 07/21/23 04:20 Albumin 1.2 g/dL (3.4-5.0) L 07/21/23 04:20 Globulin 5.5 g/dL (2.5-4.5) H 07/21/23 04:20 Albumin/Globulin Ratio 0.2 Ratio (1.1-2.1) L 07/21/23 04:20 Total PSA 1.01 ng/mL (0.13-4.0) 07/20/23 04:53 Free T4 1.17 ng/dL (0.76-1.46) 07/20/23 04:53 TSH 3rd Generation 0.741 uIU/mL (0.358-3.74) 07/20/23 04:53 Specimen Type Catherized urine 07/19/23 09:11 Urine Color Straw (YELLOW) 07/19/23 09:11 Urine Appearance Slightly hazy (CLEAR) 07/19/23 09:11 Urine pH 5.0 (5.0 - 8.0) 07/19/23 09:11 Ur Specific [place] 1.010 (1.000-1.030) 07/19/23 09:11 Urine Protein 1+ (NEGATIVE) 07/19/23 09:11 Urine Glucose (UA) 4+ (NEGATIVE) 07/19/23 09:11 Urine Ketones 2+ (NEGATIVE) 07/19/23 09:11 Urine Blood 4+ (NEGATIVE) 07/19/23 09:11 Urine Nitrite Negative (NEGATIVE) 07/19/23 09:11 Urine Bilirubin Negative (NEGATIVE) 07/19/23 09:11 Urine Urobilinogen Normal (NORMAL) 07/19/23 09:11 Ur Leukocyte Esterase Negative (NEGATIVE) 07/19/23 09:11 Urine RBC 3-5 /HPF (0-3) A 07/19/23 09:11 Urine WBC 0-2 /HPF (0-5) 07/19/23 09:11 Ur Squamous Epith Cells Rare /HPF (NEGATIVE) 07/19/23 09:11 Amorphous Sediment Trace /HPF (NEGATIVE) 07/19/23 09:11 Urine Bacteria Trace /HPF (NEGATIVE) 07/19/23 09:11 Ur Culture Indicated? No/not indicated 07/19/23 09:11 Acetone, Semi-Quant Negative (NEGATIVE) 07/21/23 08:31 Resp Viral Panel (PCR) See scanned report 07/19/23 13:19 Plan (1) Pneumonia: Status: Acute (2) Ulcer of ankle due to type 2 diabetes mellitus: Status: Acute Plan: OBTAIN LACTIC ACID, ACETONE LEVEL. REPEAT BLOOD CULTURES X2. START ROCPEHIN. CONTINUE IV ABX, IV HYDRATION, SUPPLEMENTAL 02 PRN, CARDIAC MONITORING, BS CONTROL, STRICT I&O'S. (3) Type 2 diabetes mellitus treated with insulin: Status: Acute (4) GERD (gastroesophageal reflux disease): Status: Chronic (5) Hypertension: Status: Chronic (6) Cellulitis of leg without foot, left: Status: Acute (7) Open wound, lower leg: Status: Acute (8) Arthritis: Status: Chronic
--- NOTE | 2023-07-23 17:31 | RAD ---
EXAM:CHEST, 1 VIEWHISTORY:PICC LINE PLACEMENT;COMPARISON:July 23, 2023TECHNIQUE:Chest radiographic imaging, AP portable projection, 1 imageFINDINGS:No cardiomegaly.Diffuse increased interstitial markings and reticular airspace opacities bilaterally.Left PICC tip overlies the right atrium approximately 2 cm distal to the cavoatrial junction.No pleural effusion.No pneumothorax.No acute osseous abnormality.IMPRESSION:1. No significant interval acute cardiopulmonary changes.2. Left PICC tip overlies the right atrium approximately 2 cm distal to the cavoatrial junction.THIS IS AN ELECTRONICALLY VERIFIED FINAL REPORT07/23/2023 5:23 PM - Electronically signed by Dameon Meredith MD
[2023-07-24 04:53] LABS: BASOPHILS % (AUTO) 0.2 % (0.2-1.0); EOSINOPHILS % (AUTO) 0.7 % (0.9-2.9); HEMATOCRIT 28.7 % (42.0-54.0); HEMOGLOBIN 9.4 g/dL (13.5-18.0); LYMPHOCYTES # (AUTO) 0.7 X10^3/uL (1.3-2.9); LYMPHOCYTES % (AUTO) 15.1 % (21.0-51.0); MEAN CORPUSCULAR HEMOGLOBIN 30.6 pg (27.0-34.0); MEAN CORPUSCULAR HGB CONC 32.6 g/dL (33.0-35.0); MEAN CORPUSCULAR VOLUME 93.7 fL (80.0-100.0); MEAN PLATELET VOLUME 10.3 fL (7.4-11.0); MONOCYTES # (AUTO) 0.6 x10^3/uL (0.3-0.8); MONOCYTES % (AUTO) 12.6 % (0.0-13.0); NEUTROPHILS # (AUTO) 3.4 x10^3/uL (2.2-4.8); NEUTROPHILS % (AUTO) 71.4 % (42.0-75.0); PLATELET COUNT 143 X10^3/uL (150.0-450.0); RED BLOOD COUNT 3.07 X10^6/uL (4.7-6.0); RED CELL DISTRIBUTION WIDTH 14.8 % (11.6-16.5); WHITE BLOOD COUNT 4.7 X10^3/uL (3.6-10.0)
[2023-07-24 04:59] LABS: ALANINE AMINOTRANSFERASE 9 Units/L (12-78); ALBUMIN 0.8 g/dL (3.4-5.0); ALKALINE PHOSPHATASE 65 Units/L (46-116); ASPARTATE AMINO TRANSFERASE 26 Units/L (15-37); BLOOD UREA NITROGEN 16 mg/dL (7-18); CALCIUM 7.8 mg/dL (8.5-10.1); CARBON DIOXIDE 30.6 mmol/L (21-32); CHLORIDE 103 mmol/L (98-107); COR CA(FOR HYPOALB) 10.4 mg/dL (8.5-10.1); COR NA(FOR HYPERGLY) 141 mmol/L (136-145); GLUCOSE 306 mg/dL (65-99); POTASSIUM 3.9 mmol/L (3.5-5.1); SODIUM 136 mmol/L (136-145); TOTAL PROTEIN 5.9 g/dL (6.4-8.2); eGFR NON BLACK RACES > 60 (>60)
[2023-07-24] MEDS ORDERED: CONSULT PHARMACY - POTASSIUM & MAGNESIUM XX SCH (07:00)
[2023-07-24] MEDS: COLACE CAP 100 MG PO PRN (10:29)
[2023-07-24 13:26] LABS: CREATININE 1.02 mg/dL (0.70-1.30)
[2023-07-24 13:35] LABS: VANCOMYCIN,TROUGH 22.9 ug/mL (15-20)
[2023-07-24] MEDS: VANCOMYCIN IV *PREMIX 1 G/200 ML BAG 1 G/200 ML PIGGYBACK IV SCH (20:19)
[2023-07-25 05:26] LABS: BASOPHILS % (AUTO) 0.4 % (0.2-1.0); EOSINOPHILS % (AUTO) 0.9 % (0.9-2.9); HEMATOCRIT 28.7 % (42.0-54.0); HEMOGLOBIN 9.4 g/dL (13.5-18.0); LYMPHOCYTES # (AUTO) 0.9 X10^3/uL (1.3-2.9); LYMPHOCYTES % (AUTO) 18.5 % (21.0-51.0); MEAN CORPUSCULAR HEMOGLOBIN 30.3 pg (27.0-34.0); MEAN CORPUSCULAR HGB CONC 32.6 g/dL (33.0-35.0); MEAN CORPUSCULAR VOLUME 93.1 fL (80.0-100.0); MEAN PLATELET VOLUME 10.6 fL (7.4-11.0); MONOCYTES # (AUTO) 0.7 x10^3/uL (0.3-0.8); MONOCYTES % (AUTO) 14.1 % (0.0-13.0); NEUTROPHILS % (AUTO) 66.1 % (42.0-75.0); PLATELET COUNT 184 X10^3/uL (150.0-450.0); RED BLOOD COUNT 3.08 X10^6/uL (4.7-6.0); RED CELL DISTRIBUTION WIDTH 15.2 % (11.6-16.5); WHITE BLOOD COUNT 4.6 X10^3/uL (3.6-10.0)
[2023-07-25 05:56] LABS: ALANINE AMINOTRANSFERASE 10 Units/L (12-78); ALBUMIN 0.8 g/dL (3.4-5.0); ALKALINE PHOSPHATASE 66 Units/L (46-116); ASPARTATE AMINO TRANSFERASE 25 Units/L (15-37); BLOOD UREA NITROGEN 14 mg/dL (7-18); CALCIUM 8.1 mg/dL (8.5-10.1); CARBON DIOXIDE 28.9 mmol/L (21-32); CHLORIDE 101 mmol/L (98-107); COR CA(FOR HYPOALB) 10.7 mg/dL (8.5-10.1); COR NA(FOR HYPERGLY) 141 mmol/L (136-145); CREATININE 0.93 mg/dL (0.70-1.30); GLUCOSE 261 mg/dL (65-99); MAGNESIUM 1.6 mg/dL (2.0-2.9); POTASSIUM 4.1 mmol/L (3.5-5.1); SODIUM 137 mmol/L (136-145); eGFR NON BLACK RACES > 60 (>60)
[2023-07-25] MEDS ORDERED: CONSULT PHARMACY - POTASSIUM & MAGNESIUM XX SCH (07:00)
[2023-07-25] MEDS: MAG-OX TAB PO SCH ×2 (10:27→16:00)
[2023-07-25] MEDS: ALBUMIN HUMAN 25%- 100 ML 100 ML IV SCH (11:00)
[2023-07-25 11:12] LABS: RETICULOCYTE % 0.86 % (0.8-2.2)
[2023-07-25] MEDS: LASIX IVP ONE (12:24)
[2023-07-25] MEDS: ALBURX INJ 5% 25 G/500 ML VIAL IV SCH (15:56)
[2023-07-25] MEDS: MAG-OX TAB ONE (16:47)
[2023-07-25] MEDS ORDERED: LOPRESSOR TAB 25 MG ONE (19:50)
[2023-07-25] MEDS: LOPRESSOR TAB 50 MG ONE (19:58)
[2023-07-25] MEDS: LOPRESSOR TAB 25 MG PO SCH (20:11)
[2023-07-25] MEDS: RESTORIL CAP 15 MG PO PRN (20:12)
--- NOTE | 2023-07-26 01:02 | RAD ---
PROCEDURE: Chest X-ray 1 View.HISTORY: pneumonia; .TECHNIQUE: AP view.COMPARISON: 07/23/2023.TECHNICAL QUALITY: Satisfactory.FINDINGS:Unchanged heart size upper limits of normal.Mediastinum and hilar regions show no masses or lymphadenopathy.Normal central vascularity.Increasing consolidation right base consistent with pneumonia. Left lung russ clear. No definite pleural fluid.No acute bony abnormality.IMPRESSION:1. Increasing pneumonia right base.2. Unchanged heart size upper limits of normal.THIS IS AN ELECTRONICALLY VERIFIED FINAL REPORT07/26/2023 12:59 AM - Electronically signed by Johny Daniels MD
[2023-07-26 05:33] LABS: BASOPHILS % (AUTO) 0.3 % (0.2-1.0); EOSINOPHILS % (AUTO) 0.7 % (0.9-2.9); HEMATOCRIT 28.7 % (42.0-54.0); HEMOGLOBIN 9.4 g/dL (13.5-18.0); LYMPHOCYTES # (AUTO) 1.1 X10^3/uL (1.3-2.9); LYMPHOCYTES % (AUTO) 20.9 % (21.0-51.0); MEAN CORPUSCULAR HEMOGLOBIN 30.3 pg (27.0-34.0); MEAN CORPUSCULAR HGB CONC 32.8 g/dL (33.0-35.0); MEAN CORPUSCULAR VOLUME 92.6 fL (80.0-100.0); MONOCYTES # (AUTO) 0.7 x10^3/uL (0.3-0.8); MONOCYTES % (AUTO) 12.9 % (0.0-13.0); NEUTROPHILS # (AUTO) 3.4 x10^3/uL (2.2-4.8); NEUTROPHILS % (AUTO) 65.2 % (42.0-75.0); PLATELET COUNT 202 X10^3/uL (150.0-450.0); RED CELL DISTRIBUTION WIDTH 14.7 % (11.6-16.5); WHITE BLOOD COUNT 5.2 X10^3/uL (3.6-10.0)
[2023-07-26 05:45] LABS: ALANINE AMINOTRANSFERASE 13 Units/L (12-78); ALBUMIN 1.1 g/dL (3.4-5.0); ALKALINE PHOSPHATASE 64 Units/L (46-116); ASPARTATE AMINO TRANSFERASE 24 Units/L (15-37); BLOOD UREA NITROGEN 15 mg/dL (7-18); CALCIUM 8.5 mg/dL (8.5-10.1); CARBON DIOXIDE 32.2 mmol/L (21-32); CHLORIDE 102 mmol/L (98-107); COR CA(FOR HYPOALB) 10.8 mg/dL (8.5-10.1); COR NA(FOR HYPERGLY) 140 mmol/L (136-145); CREATININE 0.99 mg/dL (0.70-1.30); GLUCOSE 129 mg/dL (65-99); MAGNESIUM 1.8 mg/dL (2.0-2.9); POTASSIUM 3.6 mmol/L (3.5-5.1); SODIUM 139 mmol/L (136-145); TOTAL PROTEIN 6.5 g/dL (6.4-8.2); eGFR NON BLACK RACES > 60 (>60)
[2023-07-26 06:24] LABS: BAND NEUTROPHILS % 6 % (0-10); PLATELET MORPHOLOGY COMMENT NORMAL (NORMAL)
[2023-07-26] MEDS ORDERED: CONSULT PHARMACY - POTASSIUM & MAGNESIUM XX SCH (07:00)
--- NOTE | 2023-07-26 09:53 | RAD ---
EXAM: CHEST, 1 VIEW HISTORY: PNEUMONIA, CHF; COMPARISON: Prior study or studies were utilized for comparison during interpretation with the most relevant [facility] ed 07/25/2023 TECHNIQUE: CHEST, 1 VIEW FINDINGS: Chest: Lines and tubes: Left upper extremity PICC terminates in the SVC. Cardiac leads overlie the chest. Mediastinum: Cardiomegaly. Pulmonary vessels: There is pulmonary vascular congestion. Lung russ: Patchy opacities are seen Pleura: No effusion. No pneumothorax. Bones and soft tissues: No acute osseous or soft tissue abnormality. IMPRESSION: 1. Heart failure suggested 2. PICC is in satisfactory position THIS IS AN ELECTRONICALLY VERIFIED FINAL REPORT 07/26/2023 9:47 AM - Electronically signed by Sterling Valdes MD
[2023-07-26] MEDS: MAG-OX TAB PO SCH (10:24)
[2023-07-26] MEDS: K-DUR TAB 20 MEQ PO SCH (10:26)
[2023-07-26 10:52] LABS: CREATININE 1.06 mg/dL (0.70-1.30)
[2023-07-26] MEDS: TRESIBA U-100 INSULIN SC SCH (12:27)
[2023-07-26] MEDS: VANCOMYCIN IV *PREMIX 750 mg/150 ML BAG 750 MG/150 ML PIGGYBACK IV SCH (12:28)
--- NOTE | 2023-07-26 12:58 | DR.CONSULT ---
CONSULT Consultation for Day of: Date: 07/26/23 Chief Complaint Chief Complaint: atrial fib Allergies Allergies Allergy/AdvReac Type Severity Reaction Status Date / Time ciprofloxacin [Cipro] Allergy Unknown Verified 07/19/23 07:43 codeine Allergy Unknown Verified 07/19/23 07:43 morphine Allergy Unknown Verified 07/19/23 07:43 Penicillins Allergy Unknown Verified 07/19/23 07:43 Sulfa (Sulfonamide Allergy Unknown Verified 07/19/23 07:43 Antibiotics) [SULFA] ALL NARCOTICS AdvReac Uncoded 07/19/23 07:43 History of Present Illness History of Present Illness: in hosp for PNA/bacteremia- now 2 days of afib- has h/o afib as on eliquis- has htn heart disease- albumin now 1.1! voices no c/o Past Medical History Past Medical History: Arthritis, Diabetes, Dyslipidemia, GERD and Hypertension Additional Medical History: VENOUS INSUFFICIENCY, PAD Past Surgical History Surgical History: Ortho Surgery Additional Surgical History: TOE AMPUTATION- RIGHT GREAT TOE Family History Family Medical History: Coronary Artery Disease and Hypertension Social History Does patient currently use any type of tobacco product: No Does any household member use tobacco: No Alcohol Use: None Drug Use: None Medications Home Medications: ciprofloxacin [Cipro] Allergy (Unknown, Verified 07/19/23 07:43) codeine Allergy (Unknown, Verified 07/19/23 07:43) morphine Allergy (Unknown, Verified 07/19/23 07:43) Penicillins Allergy (Unknown, Verified 07/19/23 07:43) Sulfa (Sulfonamide Antibiotics) [SULFA] Allergy (Unknown, Verified 07/19/23 07:43) ALL NARCOTICS Adverse Reaction (Uncoded 07/19/23 07:43) Physical Exam Vital Signs: Vital Signs Temperature 98.2 F Temperature 98.4 F Pulse Rate 87 Pulse Rate 80 Pulse Rate 109 Pulse Rate 76 Pulse Rate 82 Respiratory Rate 17 Respiratory Rate 17 Respiratory Rate 14 Respiratory Rate 15 Blood Pressure 164/76 Blood Pressure 168/77 Blood Pressure 165/77 Blood Pressure 160/82 O2 Sat by Pulse Oximetry 94 O2 Sat by Pulse Oximetry 97 O2 Sat by Pulse Oximetry 96 O2 Sat by Pulse Oximetry 96 O2 Sat by Pulse Oximetry 98 in bed- irreg irreg body edema - chronic venous changes in legs- jarad labs: hct 28, wbc 5.2 bun/cr 15/0.9 ua: 1 plus protein, bnp 194, tsh ok cxr: R pna cm ekg: nsr rad Plan (1) Pneumonia: Status: Acute (2) Type 2 diabetes mellitus treated with insulin: Status: Acute (3) Hypertension: Status: Chronic Plan: increase bp med (4) Cellulitis of leg without foot, left: Status: Acute (5) Open wound, lower leg: Status: Acute (6) Atrial fibrillation: Status: Acute Plan: on bb/doac- will add amio iv for 24 hours
[2023-07-26] MEDS: NEXTERONE IV 150 MG PREMIX* 150 MG/100 ML BAG IV ONE (13:29)
[2023-07-26] MEDS: NEXTERONE IV 360 MG PREMIX* 360 MG/200 ML BAG IV PRN ×2 (13:45→19:43)
[2023-07-26] MEDS ORDERED: NEXTERONE IV 360 MG PREMIX* 360 MG/200 ML BAG IV PRN (14:25)
[2023-07-26] MEDS: DIOVAN TAB 160 MG PO SCH (15:27)
--- NOTE | 2023-07-26 18:14 | DR.PROGNOT ---
HOSPITAL PROGRESS NOTE Progress Note for Day of: Progress Note Date: 07/26/23 Chief Complaint Chief Complaint: No new complaint, no changes in the patient history.. Bilateral leg ulcers are stable no evidence of acute infection abscess formation or necrosis. Right knee ulceration seems to be dry, no active drainage and the skin is covered with eschar. Past Medical Family Social History Allergies: Allergies ciprofloxacin [Cipro] Allergy (Unknown, Verified 07/19/23 07:43) Reason: Drug allergy codeine Allergy (Unknown, Verified 07/19/23 07:43) morphine Allergy (Unknown, Verified 07/19/23 07:43) Penicillins Allergy (Unknown, Verified 07/19/23 07:43) Sulfa (Sulfonamide Antibiotics) [SULFA] Allergy (Unknown, Verified 07/19/23 07:43) ALL NARCOTICS Adverse Reaction (Uncoded 07/19/23 07:43) Vital Signs Vital Signs: Vital Signs Temperature 97.8 F Temperature 98.0 F Pulse Rate 95 Pulse Rate 79 Pulse Rate 83 Pulse Rate 81 Pulse Rate 89 Pulse Rate 89 Pulse Rate 81 Pulse Rate 80 Respiratory Rate 22 Respiratory Rate 16 Respiratory Rate 17 Respiratory Rate 16 Respiratory Rate 26 Respiratory Rate 26 Respiratory Rate 16 Respiratory Rate 25 Blood Pressure 154/67 Blood Pressure 159/72 Blood Pressure 160/70 Blood Pressure 144/66 Blood Pressure 168/68 Blood Pressure 145/68 Blood Pressure 156/80 Blood Pressure 170/75 O2 Sat by Pulse Oximetry 95 O2 Sat by Pulse Oximetry 100 O2 Sat by Pulse Oximetry 95 O2 Sat by Pulse Oximetry 96 O2 Sat by Pulse Oximetry 92 O2 Sat by Pulse Oximetry 90 O2 Sat by Pulse Oximetry 95 O2 Sat by Pulse Oximetry 93 Physical Exam Oriented: Normal Eyes: Normal Ear: Normal Nose: Normal Throat: Normal and Dry Respiratory: Diminished Cardiovascular: Irregular and Edema GI: Tenderness: Normal Skin: Decreased Turgur, Red, Wound and Other (RIGHT KNEE- THICK, DARK COLORED SCAB measuring 4 x 4 cm, no evidence of necrosis or abscess formation.) Musculoskeletal: Right, Left, Leg, Swelling and Motor Deficit Psychiatric: Anxiety Mood Description: Anxious Affect: Anxious Speech Pattern: Clear and Appropriate Laboratory and Diagnostics 07/26/23 04:25 07/26/23 09:05 Labs: 07/22/23 10:38 Sputum - Expectorated Sputum Sputum Culture - Final Staphylococcus Epidermidis 07/22/23 10:38 Sputum - Expectorated Sputum - Final 07/21/23 08:43 Blood Blood Culture Gram Stain - Final 07/21/23 08:43 Blood Blood Culture - Final Staphylococcus Aureus 07/21/23 08:31 Blood Blood Culture Gram Stain - Final 07/21/23 08:31 Blood Blood Culture - Final Staphylococcus Aureus 07/20/23 14:45 Urine,Clean Catch Urine Culture - Final 07/19/23 08:50 Blood Blood Culture Gram Stain - Final 07/19/23 08:50 Blood Blood Culture - Final Staphylococcus Aureus 07/19/23 08:40 Blood Blood Culture Gram Stain - Final 07/19/23 08:40 Blood Blood Culture - Final Staphylococcus Aureus Laboratory WBC 5.2 X10^3/uL (3.6-10.0) 07/26/23 04:25 RBC 3.10 X10^6/uL (4.7-6.0) L 07/26/23 04:25 Hgb 9.4 g/dL (13.5-18.0) L 07/26/23 04:25 Hct 28.7 % (42.0-54.0) L 07/26/23 04:25 MCV 92.6 fL (80.0-100.0) 07/26/23 04:25 MCH 30.3 pg (27.0-34.0) 07/26/23 04:25 MCHC 32.8 g/dL (33.0-35.0) L 07/26/23 04:25 RDW 14.7 % (11.6-16.5) 07/26/23 04:25 Plt Count 202 X10^3/uL (150.0-450.0) 07/26/23 04:25 Plt Count Comment Adequate (ADEQUATE) 07/26/23 04:25 MPV 10.0 fL (7.4-11.0) 07/26/23 04:25 Neut % (Auto) 65.2 % (42.0-75.0) 07/26/23 04:25 Lymph % (Auto) 20.9 % (21.0-51.0) L 07/26/23 04:25 [place] % (Auto) 12.9 % (0.0-13.0) 07/26/23 04:25 Eos % (Auto) 0.7 % (0.9-2.9) L 07/26/23 04:25 Baso % (Auto) 0.3 % (0.2-1.0) 07/26/23 04:25 Neut # (Auto) 3.4 x10^3/uL (2.2-4.8) 07/26/23 04:25 Lymph # (Auto) 1.1 X10^3/uL (1.3-2.9) L 07/26/23 04:25 [place] # (Auto) 0.7 x10^3/uL (0.3-0.8) 07/26/23 04:25 Eos # (Auto) 0.0 x10^3/uL (0.0-0.2) 07/26/23 04:25 Baso # (Auto) 0.0 X10^3/uL (0.0-0.1) 07/26/23 04:25 Absolute Nucleated RBC 0.1 /100WBC 07/26/23 04:25 Total Counted 100 07/26/23 04:25 Neutrophils % (Manual) 65 % (39-76) 07/26/23 04:25 Band Neutrophils % 6 % (0-10) 07/26/23 04:25 Lymphocytes % (Manual) 20 % (13-43) 07/26/23 04:25 Monocytes % (Manual) 8 % (4-9) 07/26/23 04:25 Eosinophils % (Manual) 1 % (0-6) 07/26/23 04:25 Plt Morphology Comment Normal (NORMAL) 07/26/23 04:25 RBC Morphology Normal (NORMAL) 07/26/23 04:25 Absolute Retic 0.0265 10^6/uL 07/25/23 04:10 Percent Retic 0.86 % (0.8-2.2) 07/25/23 04:10 Sample Site Lrad 07/21/23 16:56 ABG pH 7.530 (7.35-7.45) H 07/21/23 16:56 ABG pCO2 35.0 mmHg (35.0-45.0) 07/21/23 16:56 ABG pO2 75.0 mmHg (80.0-100.0) L 07/21/23 16:56 ABG HCO3 29.2 mmol/L (22-26) H 07/21/23 16:56 ABG O2 Saturation 96.0 % (90-100) 07/21/23 16:56 ABG Base Excess 6.4 mmol/L (-2.0-2.0) H 07/21/23 16:56 Santos Test Pos 07/21/23 16:56 A-a Gradient 31.0 mmHg 07/21/23 16:56 FiO2 21.0 07/21/23 16:56 Blood Gas Comments Pt jovan well elj cdn 07/21/23 16:56 Sodium 139 mmol/L (136-145) 07/26/23 04:25 Corrected Sodium 140 mmol/L (136-145) 07/26/23 04:25 Potassium 3.6 mmol/L (3.5-5.1) 07/26/23 04:25 Chloride 102 mmol/L (98-107) 07/26/23 04:25 Carbon Dioxide 32.2 mmol/L (21-32) H 07/26/23 04:25 BUN 15 mg/dL (7-18) 07/26/23 04:25 Creatinine 1.06 mg/dL (0.70-1.30) 07/26/23 09:05 Est GFR (MDRD) Af Amer > 60 (>60) 07/26/23 04:25 Est GFR (MDRD) Non-Af > 60 (>60) 07/26/23 04:25 Glucose 129 mg/dL (65-99) H 07/26/23 04:25 POC Glucose (mg/dL) 327 mg/dL (65-99) H 07/26/23 17:32 Hemoglobin A1c 12.2 % 07/20/23 04:53 Lactic Acid 0.9 mmol/L (0.4-2.0) 07/21/23 10:37 Calcium 8.5 mg/dL (8.5-10.1) 07/26/23 04:25 Corrected Calcium 10.8 mg/dL (8.5-10.1) H 07/26/23 04:25 Magnesium 1.8 mg/dL (2.0-2.9) L 07/26/23 04:25 Iron 27 ug/dL (50-175) L 07/25/23 04:10 TIBC 74 ug/dL (250-450) L 07/25/23 04:10 Transferrin 72 mg/dL (202-364) L 07/25/23 04:10 Ferritin 762 ng/mL (26-388) H 07/25/23 04:10 Total Bilirubin 0.40 mg/dL (0.2-1.0) 07/26/23 04:25 AST 24 Units/L (15-37) 07/26/23 04:25 ALT 13 Units/L (12-78) 07/26/23 04:25 Alkaline Phosphatase 64 Units/L (46-116) 07/26/23 04:25 Creatine Kinase 382 Units/L (39-308) H 07/19/23 08:40 Troponin I High Sens 19.3 ng/L (4.0-60.0) 07/19/23 08:40 B-Natriuretic Peptide 194 pg/mL (0-79) H 07/19/23 08:40 Total Protein 6.5 g/dL (6.4-8.2) 07/26/23 04:25 Albumin 1.1 g/dL (3.4-5.0) L 07/26/23 04:25 Globulin 5.4 g/dL (2.5-4.5) H 07/26/23 04:25 Albumin/Globulin Ratio 0.2 Ratio (1.1-2.1) L 07/26/23 04:25 Total PSA 1.01 ng/mL (0.13-4.0) 07/20/23 04:53 Vitamin B12 777 pg/mL (193-986) 07/25/23 04:10 Folate 3.4 ng/mL (>8.6) L 07/25/23 04:10 Free T4 1.17 ng/dL (0.76-1.46) 07/20/23 04:53 TSH 3rd Generation 0.741 uIU/mL (0.358-3.74) 07/20/23 04:53 Specimen Type Catherized urine 07/19/23 09:11 Urine Color Straw (YELLOW) 07/19/23 09:11 Urine Appearance Slightly hazy (CLEAR) 07/19/23 09:11 Urine pH 5.0 (5.0 - 8.0) 07/19/23 09:11 Ur Specific [place] 1.010 (1.000-1.030) 07/19/23 09:11 Urine Protein 1+ (NEGATIVE) 07/19/23 09:11 Urine Glucose (UA) 4+ (NEGATIVE) 07/19/23 09:11 Urine Ketones 2+ (NEGATIVE) 07/19/23 09:11 Urine Blood 4+ (NEGATIVE) 07/19/23 09:11 Urine Nitrite Negative (NEGATIVE) 07/19/23 09:11 Urine Bilirubin Negative (NEGATIVE) 07/19/23 09:11 Urine Urobilinogen Normal (NORMAL) 07/19/23 09:11 Ur Leukocyte Esterase Negative (NEGATIVE) 07/19/23 09:11 Urine RBC 3-5 /HPF (0-3) A 07/19/23 09:11 Urine WBC 0-2 /HPF (0-5) 07/19/23 09:11 Ur Squamous Epith Cells Rare /HPF (NEGATIVE) 07/19/23 09:11 Amorphous Sediment Trace /HPF (NEGATIVE) 07/19/23 09:11 Urine Bacteria Trace /HPF (NEGATIVE) 07/19/23 09:11 Ur Culture Indicated? No/not indicated 07/19/23 09:11 Vancomycin Trough 22.0 ug/mL (15-20) H* 07/26/23 09:05 Random Vancomycin 10.0 ug/mL 07/23/23 05:45 Acetone, Semi-Quant Negative (NEGATIVE) 07/21/23 08:31 Resp Viral Panel (PCR) See scanned report 07/19/23 13:19 Assessment and Plan 1: Stable bilateral leg ulcers 2: Right knee wound measuring about 4 x 4 centimeter without abscess formation and no significant cellulitis. This will be observed and if needed will debrided at bedside. Problem Patient Problems: Patient Problems Pneumonia (Acute) J18.9 Hyperglycemia (Acute) R73.9
[2023-07-26] MEDS: AMBIEN PO PRN (20:48)
[2023-07-27 04:51] LABS: HEMOGLOBIN 9.4 g/dL (13.5-18.0); MONOCYTES # (AUTO) 0.6 x10^3/uL (0.3-0.8)
[2023-07-27 05:02] LABS: ALANINE AMINOTRANSFERASE 10 Units/L (12-78); ALKALINE PHOSPHATASE 64 Units/L (46-116); ASPARTATE AMINO TRANSFERASE 22 Units/L (15-37); BLOOD UREA NITROGEN 18 mg/dL (7-18); CALCIUM 8.2 mg/dL (8.5-10.1); CARBON DIOXIDE 30.8 mmol/L (21-32); CHLORIDE 102 mmol/L (98-107); COR CA(FOR HYPOALB) 10.6 mg/dL (8.5-10.1); COR NA(FOR HYPERGLY) 141 mmol/L (136-145); CREATININE 1.11 mg/dL (0.70-1.30); GLUCOSE 282 mg/dL (65-99); MAGNESIUM 1.9 mg/dL (2.0-2.9); SODIUM 137 mmol/L (136-145); TOTAL PROTEIN 6.3 g/dL (6.4-8.2); eGFR NON BLACK RACES > 60 (>60)
[2023-07-27 05:10] LABS: BASOPHILS % (AUTO) 0.6 % (0.2-1.0); EOSINOPHILS # (AUTO) 0.1 x10^3/uL (0.0-0.2); EOSINOPHILS % (AUTO) 1.4 % (0.9-2.9); HEMATOCRIT 29.1 % (42.0-54.0); LYMPHOCYTES # (AUTO) 1.1 X10^3/uL (1.3-2.9); LYMPHOCYTES % (AUTO) 23.1 % (21.0-51.0); MEAN CORPUSCULAR HEMOGLOBIN 30.1 pg (27.0-34.0); MEAN CORPUSCULAR HGB CONC 32.2 g/dL (33.0-35.0); MEAN CORPUSCULAR VOLUME 93.4 fL (80.0-100.0); MEAN PLATELET VOLUME 9.9 fL (7.4-11.0); MONOCYTES % (AUTO) 11.8 % (0.0-13.0); NEUTROPHILS % (AUTO) 63.1 % (42.0-75.0); PLATELET COUNT 187 X10^3/uL (150.0-450.0); RED BLOOD COUNT 3.11 X10^6/uL (4.7-6.0); RED CELL DISTRIBUTION WIDTH 15.4 % (11.6-16.5); WHITE BLOOD COUNT 4.7 X10^3/uL (3.6-10.0)
[2023-07-27 06:00] LABS: BAND NEUTROPHILS % 2 % (0-10); PLATELET MORPHOLOGY COMMENT NORMAL (NORMAL)
--- NOTE | 2023-07-27 08:36 | NOTE.SOAP ---
Soap Note Note for Day of Date of Exam: 07/27/23 Subjective Data Subjective Data: no c/o- eating breakfast Objective Data Objective Data: bp 140-170 p 66 but still in afib, body edema continues decreased bs r lower lung labs: wbc 4.7 hct 29 albumin 1.0?? Assessment Assessment: afib/pna/incredible low albumin/htn heart disease Plan Plan: change to po amio, cont doac, add diuretic- improve albumin with po food/iv albumin
[2023-07-27] MEDS: CORDARONE TAB 200 MG PO SCH (09:20)
[2023-07-27] MEDS: LASIX PO SCH (10:11)
[2023-07-27] MEDS: SANTYL EXT SCH (13:44)
[2023-07-27] MEDS: SANTYL ONE (17:46)
[2023-07-28 05:33] LABS: BASOPHILS % (AUTO) 0.1 % (0.2-1.0); EOSINOPHILS % (AUTO) 0.7 % (0.9-2.9); HEMATOCRIT 27.4 % (42.0-54.0); LYMPHOCYTES # (AUTO) 1.2 X10^3/uL (1.3-2.9); LYMPHOCYTES % (AUTO) 20.9 % (21.0-51.0); MEAN CORPUSCULAR HEMOGLOBIN 30.3 pg (27.0-34.0); MEAN CORPUSCULAR HGB CONC 32.9 g/dL (33.0-35.0); MEAN CORPUSCULAR VOLUME 92.2 fL (80.0-100.0); MEAN PLATELET VOLUME 9.6 fL (7.4-11.0); MONOCYTES # (AUTO) 0.5 x10^3/uL (0.3-0.8); MONOCYTES % (AUTO) 9.7 % (0.0-13.0); NEUTROPHILS # (AUTO) 3.8 x10^3/uL (2.2-4.8); NEUTROPHILS % (AUTO) 68.6 % (42.0-75.0); PLATELET COUNT 212 X10^3/uL (150.0-450.0); RED BLOOD COUNT 2.98 X10^6/uL (4.7-6.0); RED CELL DISTRIBUTION WIDTH 15.2 % (11.6-16.5); WHITE BLOOD COUNT 5.5 X10^3/uL (3.6-10.0)
[2023-07-28 05:38] LABS: ALANINE AMINOTRANSFERASE 14 Units/L (12-78); ALKALINE PHOSPHATASE 65 Units/L (46-116); ASPARTATE AMINO TRANSFERASE 28 Units/L (15-37); BLOOD UREA NITROGEN 17 mg/dL (7-18); CALCIUM 8.3 mg/dL (8.5-10.1); CHLORIDE 102 mmol/L (98-107); COR CA(FOR HYPOALB) 10.7 mg/dL (8.5-10.1); COR NA(FOR HYPERGLY) 139 mmol/L (136-145); CREATININE 1.05 mg/dL (0.70-1.30); GLUCOSE 185 mg/dL (65-99); MAGNESIUM 1.8 mg/dL (2.0-2.9); POTASSIUM 4.1 mmol/L (3.5-5.1); SODIUM 137 mmol/L (136-145); TOTAL PROTEIN 6.3 g/dL (6.4-8.2); eGFR NON BLACK RACES > 60 (>60)
[2023-07-28 05:42] LABS: CARBON DIOXIDE 31.9 mmol/L (21-32)
[2023-07-28] MEDS ORDERED: CONSULT PHARMACY - POTASSIUM & MAGNESIUM XX SCH (07:00)
[2023-07-28] MEDS: ALBUMIN HUMAN 25%- 100 ML 100 ML IV SCH (10:20)
[2023-07-28] MEDS: MAG-OX TAB PO SCH (10:22)
[2023-07-28] MEDS: PHARMACY COMMENT IV ONE (12:09)
--- NOTE | 2023-07-28 13:20 | NOTE.SOAP ---
Soap Note Note for Day of Date of Exam: 07/28/23 Subjective Data Subjective Data: no c/o Objective Data Objective Data: still in afib- bp better p 70-80 i/o -400 now getting albumin- edema minimally improved- 02 sat 96% on room air labs: hct 27 k 4.1 bun/cr 17/1.05 alb 1.0 cxr 07/25 patchy infiltrates Assessment Assessment: pna/afib/anasarca/low albumin/htn heart Plan Plan: cont amio/doac for afib- cont lasix- needs albumin to get fluid from evtravascular to intravascular space- going to rehab soon- i need to see him in a few weeks to see if nsr
--- NOTE | 2023-07-28 17:03 | PCM.PROG ---
Progress Note Progress Note for Day of Date of Exam: 07/26/23 Subjective Subjective: PATIENT IS A 78 YEAR OLD WHITE MALE PATIENT WHO WAS AN ER ADMISSION ON 07/19/23 AFTER PRESENTING FOR AMS AND HYPERGLYCEMIA. REPORTEDLY, PT HAD ALSO HAD A RECENT FALL PRIOR TO ADMISSION WITH BRUISING TO LOWER BACK. ER WORKUP REVEALED GLUCOSE GREATER THAN 700 AND CHEST XRAY SHOWED PNEUMONIA. PT WAS ADMITTED FOR FURTHER WORKUP AND TREATMENT. UPON ADMISSION, PT WAS STARTED ON IV ABX, IV HYDRATION, BS CONTROL, AND BLOOD CULTURES OBTAINED. BLOOD CULTURES DID GROW OUT STAPHYLOCOCCUS AUREUS. WE OBTAINED A REPEAT CHEST XRAY ON 07/20/23 THAT SHOWED NO ACUTE CAREDIOPULMONARY ABNORMALITY. URINE CULTURE SHOWS NO GROWTH, AIT OBTAINED ON ADMISSION RESULTED BACK POSITIVE FOR ECOLI, HAEMOPHILUS INFLUENZE, STAPHYLOCOCCUS AUERUS. A1C WAS 12.2. WE OBTAINED REPEAT BLOOD CULTURES ON 07/21/23 THAT SHOWED STAPHYLOCOCCUS AUREUS. SPUTUM CULTURE OBTAINED AND WERE ALSO POSITIVE FOR STAPH. ABG ON 07/21/23: PH 7.530, PC02 35, P02 75, HCO3 29.2, 02 SAT 96, BASE EXCESS 6.4, FIO02 21. WE OBTAINED A REPEAT CHEST XRAY ON 07/22 THAT SHOWED BILATERAL INTERSTITIAL OPACITIES AND ANOTHER YESTERDAY THAT SHOWED INCRESING PNEUMONIA RIGHT BASE AND UNCHANGED HEART SIZE UPPER LIMITIS OF NORMAL. WE WILL CONSULT DR. CORDOBA FOR A PROBABLE RIGHT LOWER EXTREMITY PRESSURE ULCER, BILATERAL LOWER EXTREMITY CELLULITIS AND PRESSURE ULCERATIONS TO LEFT LOWER EXTREMITY. HE HAS HAD SOME PAROXYSMAL ATRIAL FIBRILLATION. HE HAS A HX OF THIS AND HAS BEEN ON ELIQUIS. WE WILL CONSULT DR. MG FOR MANAGEMENT. WE INCREASED HIS METOPROLOL TO 50MG BID AND WILL OBTAIN AN ECHOCARDIOGRAM. CASE MANAGEMENT HAS DISCUSSED BOTTLING MACHINE OPERATOR PLACEMENT FOR SHORT TERM REHAB AND PATIENT/FAMILY IS AGREEABLE. HE HAS AN ONGOING CASE WITH [facility]. ONCE PATIENT IS MEDICALLY STABLE, WE WILL PLAN TO DISCHARGE HIM TO REHAB FACILITY WITH ORDERS FOR OUTPATIENT IV ABX INFUSIONS. AM LABS: HGB 9.4, WBC 5.2, BUN 15/CREATININE 0.99. Past Medical Family Social History Allergies: Allergies ciprofloxacin [Cipro] Allergy (Unknown, Verified 07/19/23 07:43) Reason: Drug allergy codeine Allergy (Unknown, Verified 07/19/23 07:43) morphine Allergy (Unknown, Verified 07/19/23 07:43) Penicillins Allergy (Unknown, Verified 07/19/23 07:43) Sulfa (Sulfonamide Antibiotics) [SULFA] Allergy (Unknown, Verified 07/19/23 07:43) ALL NARCOTICS Adverse Reaction (Uncoded 07/19/23 07:43) Vital Signs and I&O's Vital Signs: Vital Signs Temperature 97.8 F Pulse Rate 85 Pulse Rate 79 Pulse Rate 80 Pulse Rate 80 Respiratory Rate 19 Respiratory Rate 16 Respiratory Rate 16 Blood Pressure 129/63 Blood Pressure 142/65 Blood Pressure 142/65 O2 Sat by Pulse Oximetry 95 O2 Sat by Pulse Oximetry 98 O2 Sat by Pulse Oximetry 95 O2 Sat by Pulse Oximetry 95 Intake and Output: Intake & Output 07/26/23 07/27/23 07/28/23 07/29/23 11:59 11:59 11:59 11:59 Intake Total 3146 / 3146 2656 / 2656 811 / 811 Output Total 6350 / 6350 2150 / 2150 1160 / 1160 Balance -3204 / -3204 506 / 506 -349 / -349 Physical Exam Oriented: Normal Eyes: Normal Ear: Normal Nose: Normal Throat: Normal and Dry Respiratory: Diminished Cardiovascular: Irregular and Edema Tenderness: Normal Skin: Decreased Turgur, Red, Wound and Other (RIGHT KNEE- THICK, DARK COLORED SCAB measuring 4 x 4 cm, no evidence of necrosis or abscess formation.) Musculoskeletal: Right, Left, Leg, Swelling and Motor Deficit Psychiatric: Anxiety Mood Description: Anxious Affect: Anxious Speech Pattern: Clear and Inappropriate Laboratory and Diagnostics 07/28/23 04:35 07/28/23 04:35 Labs: 07/22/23 10:38 Sputum - Expectorated Sputum Sputum Culture - Final Staphylococcus Epidermidis 07/22/23 10:38 Sputum - Expectorated Sputum - Final 07/21/23 08:43 Blood Blood Culture Gram Stain - Final 07/21/23 08:43 Blood Blood Culture - Final Staphylococcus Aureus 07/21/23 08:31 Blood Blood Culture Gram Stain - Final 07/21/23 08:31 Blood Blood Culture - Final Staphylococcus Aureus 07/20/23 14:45 Urine,Clean Catch Urine Culture - Final 07/19/23 08:50 Blood Blood Culture Gram Stain - Final 07/19/23 08:50 Blood Blood Culture - Final Staphylococcus Aureus 07/19/23 08:40 Blood Blood Culture Gram Stain - Final 07/19/23 08:40 Blood Blood Culture - Final Staphylococcus Aureus Laboratory WBC 5.5 X10^3/uL (3.6-10.0) 07/28/23 04:35 RBC 2.98 X10^6/uL (4.7-6.0) L 07/28/23 04:35 Hgb 9.0 g/dL (13.5-18.0) L 07/28/23 04:35 Hct 27.4 % (42.0-54.0) L 07/28/23 04:35 MCV 92.2 fL (80.0-100.0) 07/28/23 04:35 MCH 30.3 pg (27.0-34.0) 07/28/23 04:35 MCHC 32.9 g/dL (33.0-35.0) L 07/28/23 04:35 RDW 15.2 % (11.6-16.5) 07/28/23 04:35 Plt Count 212 X10^3/uL (150.0-450.0) 07/28/23 04:35 Plt Count Comment Adequate (ADEQUATE) 07/27/23 04:29 MPV 9.6 fL (7.4-11.0) 07/28/23 04:35 Neut % (Auto) 68.6 % (42.0-75.0) 07/28/23 04:35 Lymph % (Auto) 20.9 % (21.0-51.0) L 07/28/23 04:35 [place] % (Auto) 9.7 % (0.0-13.0) 07/28/23 04:35 Eos % (Auto) 0.7 % (0.9-2.9) L 07/28/23 04:35 Baso % (Auto) 0.1 % (0.2-1.0) L 07/28/23 04:35 Neut # (Auto) 3.8 x10^3/uL (2.2-4.8) 07/28/23 04:35 Lymph # (Auto) 1.2 X10^3/uL (1.3-2.9) L 07/28/23 04:35 [place] # (Auto) 0.5 x10^3/uL (0.3-0.8) 07/28/23 04:35 Eos # (Auto) 0.0 x10^3/uL (0.0-0.2) 07/28/23 04:35 Baso # (Auto) 0.0 X10^3/uL (0.0-0.1) 07/28/23 04:35 Absolute Nucleated RBC 0.0 /100WBC 07/28/23 04:35 Total Counted 100 07/27/23 04:29 Neutrophils % (Manual) 70 % (39-76) 07/27/23 04:29 Band Neutrophils % 2 % (0-10) 07/27/23 04:29 Lymphocytes % (Manual) 23 % (13-43) 07/27/23 04:29 Monocytes % (Manual) 4 % (4-9) 07/27/23 04:29 Eosinophils % (Manual) 1 % (0-6) 07/27/23 04:29 Plt Morphology Comment Normal (NORMAL) 07/27/23 04:29 RBC Morphology Normal (NORMAL) 07/27/23 04:29 Absolute Retic 0.0265 10^6/uL 07/25/23 04:10 Percent Retic 0.86 % (0.8-2.2) 07/25/23 04:10 Sample Site Lrad 07/21/23 16:56 ABG pH 7.530 (7.35-7.45) H 07/21/23 16:56 ABG pCO2 35.0 mmHg (35.0-45.0) 07/21/23 16:56 ABG pO2 75.0 mmHg (80.0-100.0) L 07/21/23 16:56 ABG HCO3 29.2 mmol/L (22-26) H 07/21/23 16:56 ABG O2 Saturation 96.0 % (90-100) 07/21/23 16:56 ABG Base Excess 6.4 mmol/L (-2.0-2.0) H 07/21/23 16:56 Santos Test Pos 07/21/23 16:56 A-a Gradient 31.0 mmHg 07/21/23 16:56 FiO2 21.0 07/21/23 16:56 Blood Gas Comments Pt jovan well elj cdn 07/21/23 16:56 Sodium 137 mmol/L (136-145) 07/28/23 04:35 Corrected Sodium 139 mmol/L (136-145) 07/28/23 04:35 Potassium 4.1 mmol/L (3.5-5.1) 07/28/23 04:35 Chloride 102 mmol/L (98-107) 07/28/23 04:35 Carbon Dioxide 31.9 mmol/L (21-32) 07/28/23 04:35 BUN 17 mg/dL (7-18) 07/28/23 04:35 Creatinine 1.05 mg/dL (0.70-1.30) 07/28/23 04:35 Est GFR (MDRD) Af Amer > 60 (>60) 07/28/23 04:35 Est GFR (MDRD) Non-Af > 60 (>60) 07/28/23 04:35 Glucose 185 mg/dL (65-99) H 07/28/23 04:35 POC Glucose (mg/dL) 237 mg/dL (65-99) H 07/28/23 11:35 Hemoglobin A1c 12.2 % 07/20/23 04:53 Lactic Acid 0.9 mmol/L (0.4-2.0) 07/21/23 10:37 Calcium 8.3 mg/dL (8.5-10.1) L 07/28/23 04:35 Corrected Calcium 10.7 mg/dL (8.5-10.1) H 07/28/23 04:35 Magnesium 1.8 mg/dL (2.0-2.9) L 07/28/23 04:35 Iron 27 ug/dL (50-175) L 07/25/23 04:10 TIBC 74 ug/dL (250-450) L 07/25/23 04:10 Transferrin 72 mg/dL (202-364) L 07/25/23 04:10 Ferritin 762 ng/mL (26-388) H 07/25/23 04:10 Total Bilirubin 0.20 mg/dL (0.2-1.0) 07/28/23 04:35 AST 28 Units/L (15-37) 07/28/23 04:35 ALT 14 Units/L (12-78) 07/28/23 04:35 Alkaline Phosphatase 65 Units/L (46-116) 07/28/23 04:35 Creatine Kinase 382 Units/L (39-308) H 07/19/23 08:40 Troponin I High Sens 19.3 ng/L (4.0-60.0) 07/19/23 08:40 B-Natriuretic Peptide 194 pg/mL (0-79) H 07/19/23 08:40 Total Protein 6.3 g/dL (6.4-8.2) L 07/28/23 04:35 Albumin 1.0 g/dL (3.4-5.0) L 07/28/23 04:35 Globulin 5.3 g/dL (2.5-4.5) H 07/28/23 04:35 Albumin/Globulin Ratio 0.2 Ratio (1.1-2.1) L 07/28/23 04:35 Prealbumin 7.0 mg/dL (18-35.7) L 07/27/23 04:29 Total PSA 1.01 ng/mL (0.13-4.0) 07/20/23 04:53 Vitamin B12 777 pg/mL (193-986) 07/25/23 04:10 Folate 3.4 ng/mL (>8.6) L 07/25/23 04:10 Free T4 1.17 ng/dL (0.76-1.46) 07/20/23 04:53 TSH 3rd Generation 0.741 uIU/mL (0.358-3.74) 07/20/23 04:53 Specimen Type Catherized urine 07/19/23 09:11 Urine Color Straw (YELLOW) 07/19/23 09:11 Urine Appearance Slightly hazy (CLEAR) 07/19/23 09:11 Urine pH 5.0 (5.0 - 8.0) 07/19/23 09:11 Ur Specific [place] 1.010 (1.000-1.030) 07/19/23 09:11 Urine Protein 1+ (NEGATIVE) 07/19/23 09:11 Urine Glucose (UA) 4+ (NEGATIVE) 07/19/23 09:11 Urine Ketones 2+ (NEGATIVE) 07/19/23 09:11 Urine Blood 4+ (NEGATIVE) 07/19/23 09:11 Urine Nitrite Negative (NEGATIVE) 07/19/23 09:11 Urine Bilirubin Negative (NEGATIVE) 07/19/23 09:11 Urine Urobilinogen Normal (NORMAL) 07/19/23 09:11 Ur Leukocyte Esterase Negative (NEGATIVE) 05/06/24 09:11 Urine RBC 3-5 /HPF (0-3) A 07/19/23 09:11 Urine WBC 0-2 /HPF (0-5) 07/19/23 09:11 Ur Squamous Epith Cells Rare /HPF (NEGATIVE) 07/19/23 09:11 Amorphous Sediment Trace /HPF (NEGATIVE) 07/19/23 09:11 Urine Bacteria Trace /HPF (NEGATIVE) 07/19/23 09:11 Ur Culture Indicated? No/not indicated 07/19/23 09:11 Vancomycin Trough 22.0 ug/mL (15-20) H* 07/26/23 09:05 Random Vancomycin 10.0 ug/mL 07/23/23 05:45 Acetone, Semi-Quant Negative (NEGATIVE) 07/21/23 08:31 Resp Viral Panel (PCR) See scanned report 07/19/23 13:19 Plan (1) Pneumonia: Status: Acute Plan: CONSULT DR MG, CONSULT DR. CORDOBA, OBTAIN ECHOCARDIOGRAM, CHEST XRAY. CONTINUE IV ABX, IV HYDRATION, SUPPLEMENTAL 02 PRN, CARDIAC MONITORING, BS CONTROL, STRICT I&O'S, WOUND CARE. (2) Type 2 diabetes mellitus treated with insulin: Status: Acute (3) Hypertension: Status: Chronic (4) Cellulitis of leg without foot, left: Status: Acute (5) Open wound, lower leg: Status: Acute (6) Atrial fibrillation: Status: Acute
[2023-07-28 17:04] VITALS: BP 135/74; TEMP 98
--- NOTE | 2023-07-28 17:04 | PCM.PROG ---
Progress Note Progress Note for Day of Date of Exam: 07/27/23 Subjective Subjective: PATIENT IS A 78 YEAR OLD WHITE MALE PATIENT WHO WAS AN ER ADMISSION ON 07/19/23 AFTER PRESENTING FOR AMS AND HYPERGLYCEMIA. REPORTEDLY, PT HAD ALSO HAD A RECENT FALL PRIOR TO ADMISSION WITH BRUISING TO LOWER BACK. ER WORKUP REVEALED GLUCOSE GREATER THAN 700 AND CHEST XRAY SHOWED PNEUMONIA. PT WAS ADMITTED FOR FURTHER WORKUP AND TREATMENT. UPON ADMISSION, PT WAS STARTED ON IV ABX, IV HYDRATION, BS CONTROL, AND BLOOD CULTURES OBTAINED. BLOOD CULTURES DID GROW OUT STAPHYLOCOCCUS AUREUS. WE OBTAINED A REPEAT CHEST XRAY ON 07/20/23 THAT SHOWED NO ACUTE CAREDIOPULMONARY ABNORMALITY. URINE CULTURE SHOWS NO GROWTH, AIT OBTAINED ON ADMISSION RESULTED BACK POSITIVE FOR ECOLI, HAEMOPHILUS INFLUENZE, STAPHYLOCOCCUS AUERUS. A1C WAS 12.2. WE OBTAINED REPEAT BLOOD CULTURES ON 07/21/23 THAT SHOWED STAPHYLOCOCCUS AUREUS. SPUTUM CULTURE OBTAINED AND WERE ALSO POSITIVE FOR STAPH. ABG ON 07/21/23: PH 7.530, PC02 35, P02 75, HCO3 29.2, 02 SAT 96, BASE EXCESS 6.4, FIO02 21. WE OBTAINED A REPEAT CHEST XRAY ON 07/22 THAT SHOWED BILATERAL INTERSTITIAL OPACITIES AND ANOTHER YESTERDAY THAT SHOWED INCRESING PNEUMONIA RIGHT BASE AND UNCHANGED HEART SIZE UPPER LIMITIS OF NORMAL. HE HAD PICC LINE PLACEMENT ON 07/22 AND TOLERATED WELL. WE CONSULTED DR. CORDOBA FOR A PROBABLE RIGHT LOWER EXTREMITY PRESSURE ULCER, BILATERAL LOWER EXTREMITY CELLULITIS AND PRESSURE ULCERATIONS TO LEFT LOWER EXTREMITY YESTERDAY. HE SEEN HIM AND PLAN IS TO FOLLOW HIM, CONTINUE IV ABX, AND POSSIBLE DEBRIDEMENT ON RIGHT LOWER EXTREMITY ULCER NEXT WEEK. HE HAS HAD SOME PAROXYSMAL ATRIAL FIBRILLATION. HE HAS A HX OF THIS AND HAS BEEN ON ELIQUIS. WE CONSULTED DR. MG FOR MANAGEMENT AND INCREASED HIS METOPROLOL TO 50MG BID, OBTAINED AN ECHOCARDIOGRAM. ECHOCARDIOGRAM SHOWED EF 58%. DR. MG ADDED AMIODARONE IV FOR 24 HOURS. CASE MANAGEMENT HAS DISCUSSED GETTERING OPERATOR PLACEMENT FOR SHORT TERM REHAB AND PATIENT/FAMILY IS AGREEABLE. HE HAS AN ONGOING CASE WITH APS. ONCE PATIENT IS MEDICALLY STABLE, WE WILL PLAN TO DISCHARGE HIM TO REHAB FACILITY WITH ORDERS FOR OUTPATIENT IV ABX INFUSIONS. AM LABS: WBC 4.7, HGB 9.4, BUN 18/CREATININE 1.11, ALBUMIN 1. Past Medical Family Social History Allergies: Allergies ciprofloxacin [Cipro] Allergy (Unknown, Verified 07/19/23 07:43) Reason: Drug allergy codeine Allergy (Unknown, Verified 07/19/23 07:43) morphine Allergy (Unknown, Verified 07/19/23 07:43) Penicillins Allergy (Unknown, Verified 07/19/23 07:43) Sulfa (Sulfonamide Antibiotics) [SULFA] Allergy (Unknown, Verified 07/19/23 07:43) ALL NARCOTICS Adverse Reaction (Uncoded 07/19/23 07:43) Vital Signs and I&O's Vital Signs: Vital Signs Temperature 97.8 F Pulse Rate 85 Pulse Rate 79 Pulse Rate 80 Respiratory Rate 19 Respiratory Rate 16 Blood Pressure 129/63 Blood Pressure 142/65 O2 Sat by Pulse Oximetry 95 O2 Sat by Pulse Oximetry 98 O2 Sat by Pulse Oximetry 95 Intake and Output: Intake & Output 07/26/23 07/27/23 07/28/23 07/29/23 11:59 11:59 11:59 11:59 Intake Total 3146 / 3146 2656 / 2656 811 / 811 Output Total 6350 / 6350 2150 / 2150 1160 / 1160 Balance -3204 / -3204 506 / 506 -349 / -349 Physical Exam Oriented: Normal Eyes: Normal Ear: Normal Nose: Normal Throat: Normal and Dry Respiratory: Diminished Cardiovascular: Irregular and Edema Tenderness: Normal Skin: Decreased Turgur, Red, Wound and Other (RIGHT KNEE- THICK, DARK COLORED SCAB measuring 4 x 4 cm, no evidence of necrosis or abscess formation.) Musculoskeletal: Right, Left, Leg, Swelling and Motor Deficit Psychiatric: Anxiety Mood Description: Anxious Affect: Anxious Speech Pattern: Clear and Inappropriate Laboratory and Diagnostics 07/28/23 04:35 07/28/23 04:35 Labs: 07/22/23 10:38 Sputum - Expectorated Sputum Sputum Culture - Final Staphylococcus Epidermidis 07/22/23 10:38 Sputum - Expectorated Sputum - Final 07/21/23 08:43 Blood Blood Culture Gram Stain - Final 07/21/23 08:43 Blood Blood Culture - Final Staphylococcus Aureus 07/21/23 08:31 Blood Blood Culture Gram Stain - Final 07/21/23 08:31 Blood Blood Culture - Final Staphylococcus Aureus 07/20/23 14:45 Urine,Clean Catch Urine Culture - Final 07/19/23 08:50 Blood Blood Culture Gram Stain - Final 07/19/23 08:50 Blood Blood Culture - Final Staphylococcus Aureus 07/19/23 08:40 Blood Blood Culture Gram Stain - Final 07/19/23 08:40 Blood Blood Culture - Final Staphylococcus Aureus Laboratory WBC 5.5 X10^3/uL (3.6-10.0) 07/28/23 04:35 RBC 2.98 X10^6/uL (4.7-6.0) L 07/28/23 04:35 Hgb 9.0 g/dL (13.5-18.0) L 07/28/23 04:35 Hct 27.4 % (42.0-54.0) L 07/28/23 04:35 MCV 92.2 fL (80.0-100.0) 07/28/23 04:35 MCH 30.3 pg (27.0-34.0) 07/28/23 04:35 MCHC 32.9 g/dL (33.0-35.0) L 07/28/23 04:35 RDW 15.2 % (11.6-16.5) 07/28/23 04:35 Plt Count 212 X10^3/uL (150.0-450.0) 07/28/23 04:35 Plt Count Comment Adequate (ADEQUATE) 07/27/23 04:29 MPV 9.6 fL (7.4-11.0) 07/28/23 04:35 Neut % (Auto) 68.6 % (42.0-75.0) 07/28/23 04:35 Lymph % (Auto) 20.9 % (21.0-51.0) L 07/28/23 04:35 [place] % (Auto) 9.7 % (0.0-13.0) 07/28/23 04:35 Eos % (Auto) 0.7 % (0.9-2.9) L 07/28/23 04:35 Baso % (Auto) 0.1 % (0.2-1.0) L 07/28/23 04:35 Neut # (Auto) 3.8 x10^3/uL (2.2-4.8) 07/28/23 04:35 Lymph # (Auto) 1.2 X10^3/uL (1.3-2.9) L 07/28/23 04:35 [place] # (Auto) 0.5 x10^3/uL (0.3-0.8) 07/28/23 04:35 Eos # (Auto) 0.0 x10^3/uL (0.0-0.2) 07/28/23 04:35 Baso # (Auto) 0.0 X10^3/uL (0.0-0.1) 07/28/23 04:35 Absolute Nucleated RBC 0.0 /100WBC 07/28/23 04:35 Total Counted 100 07/27/23 04:29 Neutrophils % (Manual) 70 % (39-76) 07/27/23 04:29 Band Neutrophils % 2 % (0-10) 07/27/23 04:29 Lymphocytes % (Manual) 23 % (13-43) 07/27/23 04:29 Monocytes % (Manual) 4 % (4-9) 07/27/23 04:29 Eosinophils % (Manual) 1 % (0-6) 07/27/23 04:29 Plt Morphology Comment Normal (NORMAL) 07/27/23 04:29 RBC Morphology Normal (NORMAL) 07/27/23 04:29 Absolute Retic 0.0265 10^6/uL 07/25/23 04:10 Percent Retic 0.86 % (0.8-2.2) 07/25/23 04:10 Sample Site Lrad 07/21/23 16:56 ABG pH 7.530 (7.35-7.45) H 07/21/23 16:56 ABG pCO2 35.0 mmHg (35.0-45.0) 07/21/23 16:56 ABG pO2 75.0 mmHg (80.0-100.0) L 07/21/23 16:56 ABG HCO3 29.2 mmol/L (22-26) H 07/21/23 16:56 ABG O2 Saturation 96.0 % (90-100) 07/21/23 16:56 ABG Base Excess 6.4 mmol/L (-2.0-2.0) H 07/21/23 16:56 Santos Test Pos 07/21/23 16:56 A-a Gradient 31.0 mmHg 07/21/23 16:56 FiO2 21.0 07/21/23 16:56 Blood Gas Comments Pt jovan well elj cdn 07/21/23 16:56 Sodium 137 mmol/L (136-145) 07/28/23 04:35 Corrected Sodium 139 mmol/L (136-145) 07/28/23 04:35 Potassium 4.1 mmol/L (3.5-5.1) 07/28/23 04:35 Chloride 102 mmol/L (98-107) 07/28/23 04:35 Carbon Dioxide 31.9 mmol/L (21-32) 07/28/23 04:35 BUN 17 mg/dL (7-18) 07/28/23 04:35 Creatinine 1.05 mg/dL (0.70-1.30) 07/28/23 04:35 Est GFR (MDRD) Af Amer > 60 (>60) 07/28/23 04:35 Est GFR (MDRD) Non-Af > 60 (>60) 07/28/23 04:35 Glucose 185 mg/dL (65-99) H 07/28/23 04:35 POC Glucose (mg/dL) 237 mg/dL (65-99) H 07/28/23 11:35 Hemoglobin A1c 12.2 % 07/20/23 04:53 Lactic Acid 0.9 mmol/L (0.4-2.0) 07/21/23 10:37 Calcium 8.3 mg/dL (8.5-10.1) L 07/28/23 04:35 Corrected Calcium 10.7 mg/dL (8.5-10.1) H 07/28/23 04:35 Magnesium 1.8 mg/dL (2.0-2.9) L 07/28/23 04:35 Iron 27 ug/dL (50-175) L 07/25/23 04:10 TIBC 74 ug/dL (250-450) L 07/25/23 04:10 Transferrin 72 mg/dL (202-364) L 07/25/23 04:10 Ferritin 762 ng/mL (26-388) H 07/25/23 04:10 Total Bilirubin 0.20 mg/dL (0.2-1.0) 07/28/23 04:35 AST 28 Units/L (15-37) 07/28/23 04:35 ALT 14 Units/L (12-78) 07/28/23 04:35 Alkaline Phosphatase 65 Units/L (46-116) 07/28/23 04:35 Creatine Kinase 382 Units/L (39-308) H 07/19/23 08:40 Troponin I High Sens 19.3 ng/L (4.0-60.0) 07/19/23 08:40 B-Natriuretic Peptide 194 pg/mL (0-79) H 07/19/23 08:40 Total Protein 6.3 g/dL (6.4-8.2) L 07/28/23 04:35 Albumin 1.0 g/dL (3.4-5.0) L 07/28/23 04:35 Globulin 5.3 g/dL (2.5-4.5) H 07/28/23 04:35 Albumin/Globulin Ratio 0.2 Ratio (1.1-2.1) L 07/28/23 04:35 Prealbumin 7.0 mg/dL (18-35.7) L 07/27/23 04:29 Total PSA 1.01 ng/mL (0.13-4.0) 07/20/23 04:53 Vitamin B12 777 pg/mL (193-986) 07/25/23 04:10 Folate 3.4 ng/mL (>8.6) L 07/25/23 04:10 Free T4 1.17 ng/dL (0.76-1.46) 07/20/23 04:53 TSH 3rd Generation 0.741 uIU/mL (0.358-3.74) 07/20/23 04:53 Specimen Type Catherized urine 07/19/23 09:11 Urine Color Straw (YELLOW) 07/19/23 09:11 Urine Appearance Slightly hazy (CLEAR) 07/19/23 09:11 Urine pH 5.0 (5.0 - 8.0) 07/19/23 09:11 Ur Specific [place] 1.010 (1.000-1.030) 07/19/23 09:11 Urine Protein 1+ (NEGATIVE) 07/19/23 09:11 Urine Glucose (UA) 4+ (NEGATIVE) 07/19/23 09:11 Urine Ketones 2+ (NEGATIVE) 07/19/23 09:11 Urine Blood 4+ (NEGATIVE) 07/19/23 09:11 Urine Nitrite Negative (NEGATIVE) 07/19/23 09:11 Urine Bilirubin Negative (NEGATIVE) 07/19/23 09:11 Urine Urobilinogen Normal (NORMAL) 07/19/23 09:11 Ur Leukocyte Esterase Negative (NEGATIVE) 07/19/23 09:11 Urine RBC 3-5 /HPF (0-3) A 07/19/23 09:11 Urine WBC 0-2 /HPF (0-5) 07/19/23 09:11 Ur Squamous Epith Cells Rare /HPF (NEGATIVE) 07/19/23 09:11 Amorphous Sediment Trace /HPF (NEGATIVE) 07/19/23 09:11 Urine Bacteria Trace /HPF (NEGATIVE) 07/19/23 09:11 Ur Culture Indicated? No/not indicated 07/19/23 09:11 Vancomycin Trough 22.0 ug/mL (15-20) H* 07/26/23 09:05 Random Vancomycin 10.0 ug/mL 07/23/23 05:45 Acetone, Semi-Quant Negative (NEGATIVE) 07/21/23 08:31 Resp Viral Panel (PCR) See scanned report 07/19/23 13:19 Plan (1) Pneumonia: Status: Acute Plan: CONTINUE IV ABX, IV HYDRATION, SUPPLEMENTAL 02 PRN, CARDIAC MONITORING, BS CONTROL, STRICT I&O'S, WOUND CARE. (2) Type 2 diabetes mellitus treated with insulin: Status: Acute (3) Hypertension: Status: Chronic (4) Cellulitis of leg without foot, left: Status: Acute (5) Open wound, lower leg: Status: Acute (6) Atrial fibrillation: Status: Acute
[2023-07-28 17:05] VITALS: PULSE 80; RESP 22; O2SAT 99
[2023-07-28] MEDS ORDERED: PHARMACY COMMENT IV ONE (20:30)
== END 2023-07-28 19:20 | DRG 178 ==
LOC: ICU 07:36 → ER 07:36 → OBSVTOIN 12:23 → ICU 12:52
PROVIDERS: ADMIT Internal Medicine; ATTEND Internal Medicine
DX: I10 Essential (primary) hypertension; B96.3 Hemophilus influenzae [H. influenzae] as the cause of diseases classified elsewhere; Z79.01 Long term (current) use of anticoagulants; M62.81 Muscle weakness (generalized); E11.622 Type 2 diabetes mellitus with other skin ulcer; R94.31 Abnormal electrocardiogram [ECG] [EKG]; Z91.81 History of falling; L03.116 Cellulitis of left lower limb; E83.42 Hypomagnesemia; K21.9 Gastro-esophageal reflux disease without esophagitis; M19.90 Unspecified osteoarthritis, unspecified site; Z65.8 Other specified problems related to psychosocial circumstances; E87.5 Hyperkalemia; S81.801A Unspecified open wound, right lower leg, initial encounter; Z73.89 Other problems related to life management difficulty; B95.7 Other staphylococcus as the cause of diseases classified elsewhere; Z59.87 Material hardship due to limited financial resources, not elsewhere classified; R06.02 Shortness of breath; Z63.8 Other specified problems related to primary support group; Z79.4 Long term (current) use of insulin; R26.89 Other abnormalities of gait and mobility; Z59.41 Food insecurity; E86.0 Dehydration; I48.91 Unspecified atrial fibrillation; B96.29 Other Escherichia coli [E. coli] as the cause of diseases classified elsewhere; L97.328 Non-pressure chronic ulcer of left ankle with other specified severity; R78.81 Bacteremia; R41.82 Altered mental status, unspecified; E11.65 Type 2 diabetes mellitus with hyperglycemia; I87.2 Venous insufficiency (chronic) (peripheral); J15.211 Pneumonia due to Methicillin susceptible Staphylococcus aureus